=== PATIENT | female | born 1965 | race Caucasian/White ===

== ENCOUNTER 2016-03-03 08:53 | Emergency (ER) | payer OTHER ==
[2016-03-03] MEDS ORDERED: NORMAL SALINE 10 ML SYRINGE FLUSH IVP PRN (09:07)
[2016-03-03] MEDS ORDERED: Sodium Chloride 0.9% 1,000 ML PRIMARY IV ONE (09:07)
[2016-03-03] MEDS ORDERED: ASPIRIN 81 MG (BABY) CHEWABLE TABLET PO ONE (09:07)
[2016-03-03] MEDS ORDERED: IPRATROPIUM/ALBUTEROL SULFATE 3 ML NEB NEB ONE (09:09)
--- NOTE | 2016-03-03 09:12 | EKG ---
[address] [address] Measurements Intervals [place] Rate: 82 P: 70 MS: 127 QRS: -62 QRSD: 130 T: 78 QT: 418 QTc: 457 Interpretive Statements SINUS RHYTHM MARKED LEFT AXIS DEVIATION [QRS AXIS < -30] LEFT BUNDLE BRANCH BLOCK [120+ ms QRS DURATION, 80+ ms Q/S IN V1/V2, 85+ ms R IN I/aVL/V5/V6] INTERPRETATION BASED ON A DEFAULT AGE OF 40 YEARS Compared to ECG 10/29/2015 10:05:34 Left-axis deviation now present Left bundle-branch block now present T-wave abnormality no longer present In context of "chest pain" ACUTE MO must be considered Electronically Signed On 03-03-16 10:18:01 [facility] by Michael Duong MD [email or web address]
--- NOTE | 2016-03-03 09:30 | PDOC ---
General Adult HPI - General Chief Complaint: Chest Pain Stated Complaint: difficulty breathing Date Seen by Provider: 03/03/16 Time Seen by Provider: 09:00 Source: POSITIVE: Patient Exam Limitations: POSITIVE: No limitations Nurse's Notes Reviewed & Considered: Yes - History of Present Illness Initial Comment: The patient is a 50-year-old female who presents to the emergency department with increased shortness of breath and tightness across her chest. She reports that for the past 3 weeks or so she has had cough which is occasionally productive although usually dry. Over the past 24 hours she has had increased shortness of breath. She reports that she has been using her albuterol inhaler quite frequently. This morning when she woke up she stated that she could not catch her breath. She feels some tightness across her chest as well. She denies pain or swelling in her extremities or fever. She has had some subjective chills. She normally does not wear oxygen at home however does have an history of asthma and smokes approximately 1 pack of cigarettes per day. She reports that she does take Plavix at home which was started after she saw the dental surgery doctor 3 or 4 months ago. She does have a history of diabetes, hyperlipidemia as well as hypertension. Have you received a tetanus shot in the past 10 years?: No - Patient Home Medications Home Medications: Home Medications Metoclopramide HCl [Reglan] 1 tab PO BID PRN #60 tab 09/18/15 Blood Sugar Diagnostic [Onetouch Ultra Test Strips] 1 each IN BID #50 strip Blood-Glucose Meter [Onetouch Ultramini] 1 each MC BID #1 box 11/05/15 Albuterol Sulfate [Proair Hfa] 1 - 2 puff INH 6XD PRN #1 inhaler 02/12/16 Clopidogrel Bisulfate [Plavix] 1 tab PO DAILY #30 tab 02/12/16 Fluoxetine HCl 1 tab PO DAILY #30 tab 02/12/16 Metformin HCl 1 tab PO BID #60 tab 02/12/16 Simvastatin 1 tab PO DAILY #30 tab 02/12/16 Sitagliptin Phosphate [Januvia] 1 tab ORAL QD #30 tab 02/12/16 Gabapentin 2 tab PO BID #120 tab 02/19/16 Metoprolol Tartrate 1 tab PO DAILY tab 02/23/16 Omeprazole 1 cap PO DAILY #90 cap 02/23/16 Oxycodone HCl/Acetaminophen [Percocet 10-325 Mg Tablet] 1 tab-cap PO Q12H #60 tab-cap 02/23/16 Ranitidine HCl [Zantac 75] 75 mg PO DAILY tab 02/23/16 Ramipril [Altace] 2 tab-cap PO DAILY #60 cap 02/24/16 - Patient Allergies Allergies/Adverse Reactions: Allergies Allergy/AdvReac Type Severity Reaction Status Date / Time Sulfa (Sulfonamide Allergy Intermediate HIVES Verified 03/03/16 09:09 Antibiotics) sulfamethoxazole Allergy Intermediate HIVES Verified 03/03/16 09:09 [From Bactrim] trimethoprim [From Bactrim] Allergy Intermediate HIVES Verified 03/03/16 09:09 tramadol Allergy RASH Verified 03/03/16 09:09 quetiapine fumarate AdvReac Intermediate confusion Verified 03/03/16 09:09 [From Seroquel] Past Medical History - heen HEENT History: Denies History Additional HEENT History: MISSING TEETH Cardiovascular History: Hypertension, Hyperlipidemia Respiratory History: Asthma, COPD, Other (please comment) Additional Respiratory History: chronic tobacco abuse Gastrointestinal History: GERD, Other (please comment) Additional Gastrointestinal History: delayed gastric emptying Genitourinary History: Denies History Endocrine History: Type 2 Diabetes (oral) Musculoskeletal History: Arthritis, Fibromyalgia Prosthesis or Implant: No Neurological History: Migraines Blood Disorders: Denies History Psychiatric History: Depression, Anixety Disorders History of Sexually Transmitted Diseases: No Cancer History: Denies History History of MDRO: No History of Other Communicable Diseases: No Alcohol Use: Occasionally Substance Use Type: Marijuana Previous Surgical History: Yes Type / Date of Surgery: PARTIAL HYSTERECTOMY, c section, appy Anesthesia Reactions: No Malignant Hyperthermia: No Significant Family History: Asthma, Heart disease, COPD, Diabetes, Hypertension , Renal disease Past Medical History Reviewed: Reviewed - No Changes ROS - Limitations ROS Limitations: No Limitations Constitution: REPORTS: Chills. DENIES: Fever Cardiovascular: REPORTS: Chest Pain (She reports tightness across her chest which is worse with taking a deep inspiration this morning). DENIES: Heart Palpitations, Edema Respiratory: REPORTS: Cough Non Productive, Hurts To Breathe, Shortness Of Breath, Wheezing Neurological: REPORTS: Denies Neuro Symptoms Gastrointestinal: REPORTS: Denies GI Symptoms Musculoskeletal: REPORTS: Denies MS Symptoms Eyes: REPORTS: Denies Symptoms ENT: REPORTS: Congestion. DENIES: Sore Throat Skin: DENIES: Rash General Adult Exam - General Appearance General Appearance: POSITIVE: Alert, Cooperative, No Acute Distress - HEENT HEENT: POSITIVE: Head Inspection Nml, Eyes Inspection Nml, Ears Inspection Nml - Neck Neck: POSITIVE: Normal Inspection, Other (No JVD). NEGATIVE: Lymphadenopathy - Respiratory Respiratory: POSITIVE: No Respiratory Distress, Wheezes (She does have expiratory wheezes bilaterally), Other (She has diminished breath sounds bilaterally) - Cardiovascular Cardiovascular: POSITIVE: Regular Rate & Rhythm, No Murmur Peripheral Pulses: Dorsalis-pedis (R): 2+, Dorsalis-pedis (L): 2+ - Abdomen Abdomen: Soft: (All Quadrants), Denies Tenderness: (All Quadrants), No Distention: (All Quadrants) - Skin Skin: POSITIVE: Normal Color, No Rash - Extremities Extremity: Normal ROM: (All Extremities), Normal Inspection: (All Extremities) - Neurological / Psychological Neurological: POSITIVE: Other (No focal neurologic deficits) General Adult Progress - Results Reviewed by me Xrays/CTs/US Reviewed by me: Yes Discussed with Radiologist: Yes Radiology Findings: CT of the chest PE protocol reveals bilateral pleural effusions as well as pericardial effusion. She also has interstitial edema and some subcarinal lymphadenopathy. No evidence of PE per radiologist. Lab Results:: Laboratory Results 03/03/16 03/03/16 03/03/16 Range/Units 09:33 09:34 12:41 WBC 9.34 (4.8-10.8) 10^3/uL RBC 3.83 L (4.20-5.40) 10^6/uL Hgb 12.3 (12.0-16.0) g/dL Hct 37.6 (37.0-47.0) % MCV 98.2 (81-99) FL MCH 32.1 H (27-31) PG MCHC 32.7 L (33-37) g/dL RDW Std Deviation 50.7 H (39-50) fL RDW Coeff of Vaishali 14.5 (11.5-14.5) % Plt Count 263 (140-350) 10*3/uL MPV 9.0 (7.4-12.2) FL Immature Gran % (Auto) 0.2 (0-5) % Neut % (Auto) 69.6 (50-80) % Lymph % (Auto) 22.9 (10-50) % Edmonson % (Auto) 6.7 (5-15) % Eos % (Auto) 0.4 (0-8) % Baso % (Auto) 0.2 (0-1) % Immature Gran # (Auto) 0.02 10*3/UL Neut # (Auto) 6.49 10*3/UL Lymph # (Auto) 2.14 10*3/uL [place] # (Auto) 0.63 (0.3-0.8) 10*3/UL Eos # (Auto) 0.04 10*3/UL Baso # (Auto) 0.02 10*3/UL WBC Morphology Comment Normal morphology (NORM) Plt Morphology Comment Normal morphology (NORM) RBC Morph Comment Normal morphology (NORM) D-Dimer 1.01 H (0.00-0.59) mg/L VBG pH 7.52 H (7.32-7.42) VBG pCO2 33 L (45-55) mmHg VBG HCO3 27 H (22-26) mmol/L VBG Base Excess 4 H (-2-2) MMOL/L Sodium 137 (135-145) meq/L Potassium 4.4 (3.8-5.2) meq/L Chloride 105 (98-112) meq/L Carbon Dioxide 23 (23-33) meq/L Anion Gap 9 (5-20) BUN 13 (7-22) mg/dL Creatinine 0.7 (0.50-1.20) mg/dL Estimated GFR > 60 (>60 ml/min/1.73m(2)) BUN/Creatinine Ratio 18.57 (6-20) Glucose 118 H (78-110) mg/dL Calculated Osmolality 284.0 (267-292) mOsm/kg Lactic Acid 0.6 L (0.70-2.10) MMOL/L Calcium 8.9 (8.7-10.7) mg/dL Magnesium 1.7 (1.6-2.4) mg/dL Total Bilirubin 0.4 (0.3-1.2) mg/dL AST 28 (8-39) IU/L ALT 34 (9-52) IU/L Alkaline Phosphatase 85 (38-126) IU/L Troponin I < 0.012 < 0.012 (< 0.040) ng/mL C-Reactive Protein 1.5 H (0.0-0.9) mg/dL NT-Pro-B Natriuret Pep 7690 H (0-125) PG/ML Total Protein 6.1 (6.1-8.0) g/dL Albumin 3.2 L (3.5-4.8) g/dL Globulin 2.9 (2.50-4.10) g/dL Albumin/Globulin Ratio 1.10 L (1.3-2.0) mg/g EKG Interpretation:: POSITIVE: Normal Sinus Rhythm, Normal Rate, Other (She does have a left bundle branch block. When compared to EKG from October of this year this finding appears to be new.) - Patient's Progress MDM / ED Course: The patient was hypoxic with O2 sats in the upper 80s on room air on arrival. She has significant expiratory wheezing. She does have tightness across her chest however her presentation appears to be more respiratory rather than cardiac. She does however have a left bundle branch block which is new when compared to previous EKG. because of this finding I did contact Dr. Saab who is the dental surgery doctor in [place] who had taken care of her last October when she had undergone cardiac catheterization. He thought that she had had this left bundle branch block intermittently when she was hospitalized there in [place] and did not think that this was a new finding. He recommended checking troponins and if elevated contact him. He stated that she does have a 90% stenosis of a small diagonal branch which is not amendable to intervention and she has recommended medical management for that. He states that her LAD was open at the time of her catheterization in October. She was given aspirin per chest pain protocol as well as DuoNeb. Blood cultures, lactate and venous blood gas were obtained with initial IV start. She was placed on oxygen per nasal cannula which brought her O2 sats up into the mid-90s. She was given sublingual nitroglycerin which did not help with her chest pain at all and actually she stated she thought it made it worse. She subsequently received morphine 4 mg and Zofran 4 mg IV for pain. She was also given Solu-Medrol 125 mg IV for presumed COPD exacerbation. This brought her pain level down to about a 6 out of 10 however she was still having significant chest pain. Her d- dimer was elevated and her initial troponin was normal. The remainder of her blood work was essentially unremarkable. She underwent CT for PE protocol which was negative for PE. She did however have bilateral pleural effusions and pericardial effusion as well as some interstitial edema of questionable etiology per radiologist. She had also some subcarinal lymphadenopathy. She was having continued pain and received a dose of fentanyl for pain. This resulted in further improvement in pain down to a 4 out of 10. In addition a repeat troponin was ordered as well as a BNP. Her repeat troponin remains normal, her BNP however is markedly elevated at 7600. The patient is discussed with Dr. Fernandez. Given her CT findings and elevated BNP he had recommended that I discussed the patient with Dr. Saab regarding further recommendation. He recommended that the patient should be transferred back to [place] for further cardiac evaluation. In addition the patient will be started on heparin per cardiac protocol. These findings and recommendations were discussed with the patient and she is in agreement with that plan. Arrangements are being made to transfer the patient to [facility]. - Consult Counseled: POSITIVE: Patient, RE: Lab Results, RE: Radiology Results, RE: DX, RE : Need for F/U Patient Care Time - Estimated PCT Patient Care Time (In Minutes): 70 Vital Signs - Recent Vital Signs Vital Signs: Vital Signs (Last 8 hours) Temp Pulse Pulse Resp BP Pulse Ox 03/03/16 08:59 82 03/03/16 08:53 96.4 F L 84 21 180/122 91 - VS Reviewed Vital Signs Reviewed: Yes Discharge Clinical Impression: Chest pain, Congestive heart failure, Pericardial effusion, Pleural effusion, Hypoxemia Discharge Disposition: Transferred to Tertiary Care Facility Condition: Fair Date Decision to Transfer to Another Facility: 03/03/16 Time Decision to Transfer to Another Facility: 13:30
[2016-03-03 09:38] LABS: BASOPHILS # (AUTO) 0.02 10*3/UL; BASOPHILS % (AUTO) 0.2 % (0-1); EOSINOPHILS % (AUTO) 0.4 % (0-8); HEMATOCRIT 37.6 % (37.0-47.0); HEMOGLOBIN 12.3 g/dL (12.0-16.0); IMM GRAN % (AUTO) 0.2 % (0-5); IMM GRAN# (AUTO) 0.02 10*3/UL; LYMPHOCYTES # (AUTO) 2.14 10*3/uL; LYMPHOCYTES % (AUTO) 22.9 % (10-50); MEAN CORPUSCULAR HEMOGLOBIN 32.1 PG (27-31); MEAN CORPUSCULAR HGB CONC 32.7 g/dL (33-37); MONOCYTES # (AUTO) 0.63 10*3/UL (0.3-0.8); MONOCYTES % (AUTO) 6.7 % (5-15); NEUTROPHILS # (AUTO) 6.49 10*3/UL; NEUTROPHILS % (AUTO) 69.6 % (50-80); RDW COEFFICIENT OF VARIATION 14.5 % (11.5-14.5); RED BLOOD COUNT 3.83 10^6/uL (4.20-5.40); WHITE BLOOD COUNT 9.34 10^3/uL (4.8-10.8)
[2016-03-03 09:39] LABS: PLATELET MORPHOLOGY COMMENT NORMAL MORPHOLOGY (NORM)
[2016-03-03 10:00] LABS: ASPARTATE AMINO TRANSFERASE 28 IU/L (8-39); BILIRUBIN,TOTAL 0.4 mg/dL (0.3-1.2); BLOOD UREA NITROGEN 13 mg/dL (7-22); BUN/CREATININE RATIO 18.57 (6-20); C-REACTIVE PROTEIN 1.5 mg/dL (0.0-0.9); CALCIUM 8.9 mg/dL (8.7-10.7); CHLORIDE 105 meq/L (98-112); CREATININE 0.7 mg/dL (0.50-1.20); EST GLOMERULAR FILTRATION > 60 (>60 ml/min/1.73m(2)); GLUCOSE 118 mg/dL (78-110); LACTATE 0.6 MMOL/L (0.70-2.10); MAGNESIUM 1.7 mg/dL (1.6-2.4); POTASSIUM 4.4 meq/L (3.8-5.2); SODIUM 137 meq/L (135-145); TOTAL PROTEIN 6.1 g/dL (6.1-8.0)
[2016-03-03] MEDS: NITROGLYCERIN 0.4 MG SL TAB (BOTTLE OF 3) SL ONE ×2 (10:00→10:08)
[2016-03-03] MEDS ORDERED: MORPHINE SULFATE 4 MG/1 ML IVP ONE (10:20)
[2016-03-03] MEDS ORDERED: methylPREDNISolone 125 MG/2 ML VIAL IVP ONE (10:20)
[2016-03-03] MEDS ORDERED: ONDANSETRON 4 MG/2 ML VIAL IVP ONE (10:21)
[2016-03-03] MEDS ORDERED: fentaNYL Inj 100 MCG/2 ML VIAL IVP ONE (12:38)
[2016-03-03] MEDS ORDERED: FUROSEMIDE 10 MG/1 ML - 2 ML VIAL IVP ONE (13:29)
[2016-03-03] MEDS ORDERED: HEPARIN 5000 UNIT/1 ML IV ONE (13:37)
--- NOTE | 2016-03-03 13:41 | DI ---
CT ANGIOGRAM OF THE CHEST, 03/03/2016 11:17 AM : Clinical History: Chest pain. Cough. Elevated D-dimer test. Previous Exam: None at this facility. Scans are performed from the base of the neck to the lower lung bases following IV administration of 70 mL of Isovue 300. Proprietary automated bolus tracking software was not used to verify the timing of the injection. The base of the neck and thoracic inlet are normal. There is no axillary, supraclavicular, or hilar a denopathy, but there may be subcarinal adenopathy. There is a moderate pericardial effusion but the h eart is otherwise normal. The pulmonary arteries are normal. There is no pulmonary arterial hypertens ion. There is no evidence of pulmonary embolism or pulmonary infarction. There is no acute infiltrate but there are bilateral small pleural effusions, slightly larger on the right side than the left. In addition extensive Jace A lines and a moderate amount of Jace B lines are present. Review of the chest x-ray from 10/29/2015 and the exam performed today showed that these interstitial markings have developed since October of 2015. The development of pleural effusions and pericardial effusion as well as interstitial changes can be seen with collagen vascular diseases. Both adrenal glands and the spleen as well as the visualized portions of the liver and pancreas are normal. READIN. Normal CTA of the chest. There are no pulmonary emboli or pulmonary infarcts. 2. Small bilateral pleural effusions, slightly larger on the right side than the left. The patient h as developed interstitial markings involving Jace A and Jace B lines since the chest x-ray from . The interstitial changes can be secondary to fibrosis or fluid in the lymphatic channels an d less likely lymphangitic spread of tumor. 3. Moderate pericardial effusion. 4. Subcarinal adenopathy.
--- NOTE | 2016-03-03 13:49 | DI ---
AP CHEST X-RAY, 03/03/2016 10:58 AM : Clinical History: Chest pain. Cough. Previous Exam: 10/29/2015. There is no acute soft tissue or bony abnormality. Heart size is normal. There is no acute infiltrate or effusion. Since the previous exam, the patient has developed extensive Jace A lines bilaterally . These markings can be secondary to fluid in the lymphatic channels such as seen with CHF, fibrosis of the interstitial planes, or lymphangitic spread associated with tumors. Mediastinal structures are normal. There are no pulmonary nodules. Readin. There is no acute infiltrate or effusion. 2. Interval development of extensive interstitial disease involving Jace A and Jace B lines. Dif ferential as listed above.
[2016-03-03 14:26] VITALS: RESP 16; TEMP 97.6
== END 2016-03-03 14:00 | disposition short-term general hospital (02) ==
LOC: ER 08:53
DX: I50.9 Heart failure, unspecified (principal); I31.3 Pericardial effusion (noninflammatory); J90 Pleural effusion, not elsewhere classified; R09.02 Hypoxemia; R07.89 Other chest pain; R06.2 Wheezing
CPT/HCPCS: 36415 ×2; 71010; 71275; 80053; 82803; 83605; 83735; 83880; 84484; 85025; 85379; 86140; 93005; 93010; 94640; 96374; 96375; 99284 ×2; J2930; J3010; J7620; 87040; J1644; J2270; J2405; J7030

== ENCOUNTER → 2016-03-30 | Outpatient (CLI) | payer OTHER ==
[2016-03-30 09:24] LABS: LDL CHOLESTEROL,CALCULATED 77.4 mg/dL
== END ==
LOC: LAB 08:38
PROVIDERS: ATTEND Internal Medicine
DX: E11.9 Type 2 diabetes mellitus without complications (principal); I50.23 Acute on chronic systolic (congestive) heart failure; I10 Essential (primary) hypertension; E78.00 Pure hypercholesterolemia, unspecified; K21.9 Gastro-esophageal reflux disease without esophagitis; F17.210 Nicotine dependence, cigarettes, uncomplicated
CPT/HCPCS: 36415; 80061; 83880; 84443

== ENCOUNTER → 2016-04-21 | Outpatient (CLI) | payer OTHER ==
[2016-04-21 10:28] LABS: BILIRUBIN,URINE NEGATIVE (NEG); CLARITY,URINE CLEAR (CLEAR); GLUCOSE, URINE (UA) NEGATIVE (NEG); LEUKOCYTE ESTERASE ,URINE NEGATIVE (NEG); NITRATE,URINE NEGATIVE (NEG); OCCULT BLOOD,URINE SMALL (NEG); PH,URINE 5.5 (5.0-8.5); PROTEIN,URINE NEGATIVE (NEG); UROBILINOGEN,URINE 0.2 mg/dL (0.2)
[2016-04-21 10:33] LABS: URINE SAMPLE TYPE VOIDED SPECIMEN
[2016-04-21 10:36] LABS: CREATININE, URINE 94.9 MG/DL (15-500)
[2016-04-21 10:43] LABS: RBC,URINE 0 /hpf; SQUAMOUS EPITHELIAL CELL,UR FEW; WBC,URINE 0-1
[2016-04-21 10:44] LABS: METHAMPHETAMINES SCREEN,URINE NEGATIVE (NEG); URINE SAMPLE TYPE VOIDED SPECIMEN; URINE SPECIFIC GRAVITY - MAN 1.015
[2016-04-21 10:45] LABS: CANNABINOID SCREEN,URINE POSITIVE (NEG); COCAINE SCREEN NEGATIVE (NEG)
== END ==
LOC: LAB 09:32
PROVIDERS: ATTEND Internal Medicine
DX: E11.9 Type 2 diabetes mellitus without complications (principal); Z76.89 Persons encountering health services in other specified circumstances; F17.210 Nicotine dependence, cigarettes, uncomplicated
CPT/HCPCS: 80305; 81001; 82043; 82542

== ENCOUNTER → 2016-09-24 | Outpatient (CLI) | payer OTHER | LOC: LAB 12:46 | PROVIDERS: ATTEND Physician Assistant Medical | DX: N30.01 Acute cystitis with hematuria (principal) | CPT/HCPCS: 87088 ==

== ENCOUNTER → 2016-09-25 | Outpatient (CLI) | payer OTHER ==
[2016-09-25 08:56] LABS: BASOPHILS # (AUTO) 0.04 10*3/UL; BASOPHILS % (AUTO) 0.5 % (0-1); EOSINOPHILS % (AUTO) 1.3 % (0-8); HEMATOCRIT 38.8 % (37.0-47.0); HEMOGLOBIN 13.4 g/dL (12.0-16.0); MEAN CORPUSCULAR HEMOGLOBIN 33.3 PG (27-31); MEAN CORPUSCULAR HGB CONC 34.5 g/dL (33-37); MEAN CORPUSCULAR VOLUME 96.3 FL (81-99); MEAN PLATELET VOLUME 8.5 FL (7.4-12.2); MONOCYTES # (AUTO) 0.45 10*3/UL (0.3-0.8); NEUTROPHILS # (AUTO) 4.73 10*3/UL; NEUTROPHILS % (AUTO) 63.7 % (50-80); RED BLOOD COUNT 4.03 10^6/uL (4.20-5.40)
[2016-09-25 08:57] LABS: PLATELET MORPHOLOGY COMMENT NORMAL MORPHOLOGY (NORM); RBC MORPHOLOGY COMMENT NORMAL MORPHOLOGY (NORM); WBC MORPHOLOGY COMMENT NORMAL MORPHOLOGY (NORM)
[2016-09-25 09:08] LABS: BLOOD UREA NITROGEN 12 mg/dL (7-22); CALCIUM 8.7 mg/dL (8.7-10.7); EST GLOMERULAR FILTRATION > 60 (>60 ml/min/1.73m(2)); SERUM ALBUMIN 3.5 g/dL (3.5-4.8)
[2016-09-25 09:09] LABS: HEMOGLOBIN A1C 6.39 % (4.2-6.0)
[2016-09-28 12:55] LABS: HEP B CORE IGM ANTIBODY Negative (Negative); HEPATITIS A IGM Negative (Negative); HEPATITIS B SURFACE AG Negative (Negative)
== END ==
LOC: LAB 08:38
PROVIDERS: ATTEND Physician Assistant Medical
DX: E11.9 Type 2 diabetes mellitus without complications (principal); R14.0 Abdominal distension (gaseous); R10.84 Generalized abdominal pain; I10 Essential (primary) hypertension; R79.89 Other specified abnormal findings of blood chemistry; Z72.0 Tobacco use
CPT/HCPCS: 36415; 80053; 83036; 83880; 85025; 86705; 86709; 86803; 87340

== ENCOUNTER → 2016-09-28 | Outpatient (CLI) | payer OTHER ==
[2016-09-28 11:28] LABS: BASOPHILS # (AUTO) 0.06 10*3/UL; BASOPHILS % (AUTO) 0.8 % (0-1); EOSINOPHILS # (AUTO) 0.07 10*3/UL; EOSINOPHILS % (AUTO) 0.9 % (0-8); HEMATOCRIT 40.1 % (37.0-47.0); HEMOGLOBIN 13.8 g/dL (12.0-16.0); LYMPHOCYTES # (AUTO) 2.12 10*3/uL; MEAN CORPUSCULAR HEMOGLOBIN 33.3 PG (27-31); MEAN CORPUSCULAR HGB CONC 34.4 g/dL (33-37); MEAN CORPUSCULAR VOLUME 96.9 FL (81-99); MEAN PLATELET VOLUME 8.9 FL (7.4-12.2); MONOCYTES # (AUTO) 0.51 10*3/UL (0.3-0.8); MONOCYTES % (AUTO) 6.9 % (5-15); NEUTROPHILS # (AUTO) 4.65 10*3/UL; NEUTROPHILS % (AUTO) 62.5 % (50-80); RED BLOOD COUNT 4.14 10^6/uL (4.20-5.40)
[2016-09-28 11:37] LABS: BILIRUBIN,URINE NEGATIVE (NEG); CLARITY,URINE CLEAR (CLEAR); COLOR,URINE YELLOW; GLUCOSE, URINE (UA) NEGATIVE (NEG); NITRATE,URINE NEGATIVE (NEG); PH,URINE 5.5 (5.0-8.5); PROTEIN,URINE TRACE mg/dl (NEG); UROBILINOGEN,URINE 0.2 mg/dL (0.2)
[2016-09-28 11:45] LABS: BLOOD UREA NITROGEN 15 mg/dL (7-22); BUN/CREATININE RATIO 21.42 (6-20); CALCIUM 9.3 mg/dL (8.7-10.7); EST GLOMERULAR FILTRATION > 60 (>60 ml/min/1.73m(2)); PLATELET MORPHOLOGY COMMENT NORMAL MORPHOLOGY (NORM); RBC MORPHOLOGY COMMENT NORMAL MORPHOLOGY (NORM); SERUM ALBUMIN 3.8 g/dL (3.5-4.8); WBC MORPHOLOGY COMMENT NORMAL MORPHOLOGY (NORM)
[2016-09-28 11:46] LABS: OCCULT BLOOD,URINE TRACE (NEG)
[2016-09-28 11:55] LABS: BACTERIA,URINE FEW; SQUAMOUS EPITHELIAL CELL,UR MODERATE
[2016-09-28 14:35] LABS: URINE SAMPLE TYPE VOIDED SPECIMEN
--- NOTE | 2016-09-28 16:06 | DI ---
History: Syncope Comparison: October 29, 2015 Findings: Heart size normal Pulmonary vasculature normal Lungs clear. No pleural effusion No gross osseous abnormalities Impression Normal two-view study of the chest
== END ==
LOC: MOB LAB 10:03
PROVIDERS: ATTEND Internal Medicine
DX: R55 Syncope and collapse (principal); E11.9 Type 2 diabetes mellitus without complications; K52.9 Noninfective gastroenteritis and colitis, unspecified; R30.0 Dysuria; R79.9 Abnormal finding of blood chemistry, unspecified; F17.209 Nicotine dependence, unspecified, with unspecified nicotine-induced disorders
CPT/HCPCS: 36415; 71020; 80053; 81001; 83880; 84443; 85025

== ENCOUNTER 2017-02-20 09:25 | Observation (INO) ==
[2017-02-20] MEDS ORDERED: HYDROmorphone 2 MG/1 ML IVP ONE ×2 (09:50→11:05)
[2017-02-20] MEDS ORDERED: Lactated Ringers 1,000 ML PRIMARY IV ONE (09:50)
[2017-02-20] MEDS ORDERED: NORMAL SALINE 10 ML SYRINGE FLUSH IVP PRN ×2 (10:02→12:07)
--- NOTE | 2017-02-20 11:14 | DI ---
History: Physician Notes: Tech Comments: Exam: CT L SPINE Without Contrast Comparison: MRI 12/22/2011 FINDINGS: A posterior disc osteophyte complex is present at T11-T12 with mild appearing left paracentral and left foraminal narrowing. Posterior disc osteophyte complex at T12-L1 without significant appearing central or foraminal stenosis. L1-L5 appear within limits. L5-S1 broad-based disc bulge with mild central canal narrowing without CT evidence of significant foraminal stenosis. No fracture or malalignment. Small bilateral right and left adrenal nodule appear lipid rich. No renal stones or hydronephrosis. Bilateral symmetric perinephric stranding, edema is nonspecific. IMPRESSION: A posterior disc osteophyte complex is present at T11-T12 with mild appearing left paracentral and left foraminal narrowing. Posterior disc osteophyte complex at T12-L1 without significant appearing central or foraminal stenosis. L1-L5 appear within limits. L5-S1 broad-based disc bulge with mild central canal narrowing without CT evidence of significant foraminal stenosis. No fracture or malalignment.
[2017-02-20] MEDS ORDERED: Metoclopramide Tab 10 MG TAB PO PRN (12:07)
[2017-02-20] MEDS ORDERED: ONDANSETRON 4 MG/2 ML VIAL IVP PRN (12:07)
[2017-02-20] MEDS ORDERED: LIDOCAINE W/ SODIUM BICARB 0.5 ML SYR SUBD PRN (12:07)
[2017-02-20] MEDS ORDERED: ACETAMINOPHEN 325 MG TABLET PO PRN (12:07)
[2017-02-20] MEDS ORDERED: CALCIUM CARBONATE 500 MG (TUMS) CHEWABLE TABLET PO PRN (12:07)
[2017-02-20] MEDS ORDERED: DOCUSATE 100 MG CAPSULE PO PRN (12:07)
[2017-02-20] MEDS ORDERED: ALBUTEROL SULFATE 8.5 GM HFA INHALER INH PRN (12:07)
[2017-02-20] MEDS ORDERED: PNEUMOCOCCAL 23 VACCINE 25 MCG/0.5 ML VIAL IM ONE (13:35)
[2017-02-20] MEDS ORDERED: Influenza 17-18 Vaccine (6mo+) Quad 60mcg/0.5ml PF IM ONE (13:35)
[2017-02-20] MEDS ORDERED: NICOTINE 21 MG /DAY PATCH TRANSDERM ONE (14:08)
[2017-02-20] MEDS ORDERED: Insulin Sliding Scale Protocol SUBCUT PRN (14:10)
[2017-02-20] MEDS ORDERED: Glucagon Inj Vial 1 MG/ML VIAL IM PRN (14:10)
[2017-02-20] MEDS ORDERED: DEXTROSE 50%-WATER SYRINGE 50 ML SYRINGE IVP PRN (14:10)
[2017-02-20] MEDS ORDERED: DEXTROSE 31 GM GEL PO PRN (14:10)
[2017-02-20] MEDS ORDERED: METHYLPREDNISOLONE 4 MG TAB DOSE PACK(DAY 1 0700) PO ONE (15:00)
[2017-02-20] MEDS ORDERED: METHYLPREDNISOLONE 4 MG TAB DOSE PACK(DAY 1-4 1230) PO SCH (15:00)
[2017-02-20] MEDS: CYCLOBENZAPRINE 10 MG TABLET PO PRN (15:02)
[2017-02-20] MEDS: KETOROLAC 15 MG/1 ML VIAL IVP PRN (15:02)
--- NOTE | 2017-02-20 15:21 | PDOC ---
HPI - History of Present Illness Date of Service: 02/20/17 Time of Service: 13:00 Chief Complaint: back and leg pain History of Present Illness: This is a 51 YO female with DMII, CAD, and other medical issues who presents to the ER this morning with complaints of back pain with radiation down the left leg. Present for two weeks. The patient states it hurts most with twisting motions. She states she cannot recall any injury or motion that caused the pain. She also tells me she has back arthritis, but her back normally does not cause pain. The patient stated she tried tylenol without help. A CT scan in the ER shows a bulging disk at L5-S1 and she has an examination consistent with a radiculopathy at that level. Pain medications in the ER helped the back pain improve significantly according to the patient. Past Medical History Medical History: 1. Diabetes type II, complicated by neuropathy and gastropathy. 2. Diabetic neuropathy. 3. Hypertension. 4. Bipolar disorder. 5. Depression. 6. tobacco abuse. 7. GERD, with history of esophageal stricture. 8. IBS. 10. Diabetic gastropathy. 11. Obstructive sleep apnea she's not on CPAP Surgical History: 1. Hysterectomy with left oophorectomy. 2. Appendectomy Pertinent Family History: Father from [place] at age 64. significant for CAD Past Social History: smokes cigarettes. The patient denies alcohol. . She did not admit to me but did admit to the RN that she smokes marijuana daily. Tobacco Use: Current Every Day Smoker In the Past 12 Months, Have Used or Abuse Any of the Following Substance: Marijuana Alcohol Use: None Medication / Allergies Home Medications: Home Medications Medication Instructions Recorded Confirmed Type Blood-Glucose Meter [Onetouch 1 ea MC BID #1 box 11/05/15 02/20/17 Rx Ultramini] Metformin HCl 1 tab-cap PO BID #180 tab-cap 05/12/16 02/20/17 Rx Albuterol Sulfate [Proair Hfa] 1 - 2 puff INH 6XD PRN #1 inhaler 07/09/16 History Blood Sugar Diagnostic [Onetouch 1 ea IN BID #50 strip 07/09/16 02/20/17 Rx Ultra Test Strips] clopidogrel 75 mg tablet 75 mg PO DAILY #30 tab 02/02/17 02/20/17 Rx gabapentin 600 mg tablet 1,200 mg PO BID #120 tab 02/02/17 02/20/17 Rx metoprolol tartrate 25 mg tablet 25 mg PO DAILY #30 tab 02/02/17 02/20/17 Rx omeprazole 40 mg capsule,delayed 40 mg PO DAILY #90 cap 02/02/17 02/20/17 Rx release ramipril 10 mg capsule 20 mg PO DAILY #60 cap 02/02/17 02/20/17 Rx simvastatin 40 mg tablet 40 mg PO DAILY #30 tab-cap 02/02/17 02/20/17 Rx sitagliptin 100 mg tablet 100 mg PO QD #30 tab-cap 02/02/17 02/20/17 Rx metoclopramide 10 mg tablet 10 mg PO TID PRN #270 tab 02/10/17 02/20/17 Rx fluoxetine 60 mg tablet 60 mg PO DAILY #90 tab 02/15/17 02/20/17 Rx Allergies/Adverse Reactions: Allergies 3 Allergy/AdvReac Type Severity Reaction Status Date / Time quetiapine fumarate Allergy Intermediate confusion Verified 02/20/17 09:39 [From Seroquel] Sulfa (Sulfonamide Allergy Intermediate HIVES Verified 02/20/17 09:39 Antibiotics) sulfamethoxazole Allergy Intermediate HIVES Verified 02/20/17 09:39 [From Bactrim] trimethoprim [From Bactrim] Allergy Intermediate HIVES Verified 02/20/17 09:39 tramadol Allergy RASH Verified 02/20/17 09:39 Review of Systems - Review of Systems All Systems: Reviewed & No Additional Complaints Except as Stated (I did a 12 point review of systems and it was negative except as per HPI and that noted below.) - Respiratory Respiratory: REPORTS: Cough (daily) - Cardiovascular Cardiovascular: REPORTS: Other (sometimes feels like her heart beats fast.) - Gastrointestinal Gastrointestinal / Abdominal: REPORTS: Nausea, Vomiting, Diarrhea, Other (has known DM gastroparesis, vomits every morning.) - Genitourinary Genitourinary: REPORTS: Negative System Review - Musculoskeletal Musculoskeletal: REPORTS: Back Pain - Hematlogic / Lymphatic Hematologic / Lymphatic: REPORTS: Easy Bleeding/Bruising (on plavix) - Neurological Neurologic: REPORTS: Negative System Review - Psychiatric Psychiatric: REPORTS: Negative System Review Exam - Vitals Vital Signs: Vital Signs Temperature 97.2 F Temperature Source Temporal Artery Scan Pulse Rate [Pulse Oximeter] 66 Respiratory Rate 12 Blood Pressure [Left Arm] 130/92 Pulse Ox 94 Oxygen Delivery Method Room Air Height 5 ft 2 in Weight 164 lb 6.4 oz laying in position on left side, noted Dr. Blancas at bedside. - General General Appearance: No Acute Distress, Cooperative - Head Head Exam: Normal Inspection, Normocephalic, Atraumatic - Eye Eye Exam: POSITIVE: No Scleral Icterus - Neck Neck Exam: Normal Inspection, No Tenderness, No Lymphadenopathy, No Thyromegaly - Respiratory Respiratory Exam: POSITIVE: Breathing Non Labored, Normal to Percussion and Palpation, Coarse Breath Sounds - Cardiovascular Cardiovascular Exam: POSITIVE: RRR, No Murmur, No Clicks, No Gallops, No Rubs, No JVD - GI/Abdominal GI/Abdominal Exam: POSITIVE: Normal Bowel Sounds, Non Tender, Non Distended, Soft - Rectal Rectal Exam: POSITIVE: Deferred - External Exam: POSITIVE: Deferred Exam: POSITIVE: Deferred - Extremities Extremities Exam: POSITIVE: No Clubbing Present, No Edema Present, No Cyanosis Present - Back Back Exam: POSITIVE: No CVA Tenderness - Neurological Neurological Exam: POSITIVE: Alert, Oriented x 3, No Facial Droop, Speech Intact / Clear, Moves All Extremities Equally Additional Neurological Exam Details: brisk patellar reflex, delayed achilles reflex on left side. - Psychiatric Psychiatric Exam: POSITIVE: Normal Affect, Normal Mood - Central Line Examination Central Line Present on Admission: No Results - Imaging Status: Report Reviewed by Me (L5-S1 disk bulge.) Assessment and Plan - Patient Problems (1) Sciatica Current Visit: Yes Status: Acute Code(s): M54.30 - Sciatica, unspecified side Qualifiers: Laterality: left Qualified Code(s): M54.32 - Sciatica, left side (2) DMII (diabetes mellitus, type 2) Current Visit: Yes Status: Acute Code(s): E11.9 - Type 2 diabetes mellitus without complications Qualifiers: Diabetes mellitus complication status: with neurologic complications Diabetes mellitus complication detail: with autonomic neuropathy Diabetes mellitus usp insulin use: without ferry terminal agent use Qualified Code(s): E11.43 - Type 2 diabetes mellitus with diabetic autonomic (poly)neuropathy (3) Tobacco abuse Current Visit: Yes Status: Acute Code(s): Z72.0 - Tobacco use (4) Marijuana abuse Current Visit: Yes Status: Acute Code(s): F12.10 - Cannabis abuse, uncomplicated (5) Hypertension Current Visit: Yes Status: Chronic Code(s): I10 - Essential (primary) hypertension Qualifiers: Hypertension type: essential hypertension Qualified Code(s): I10 - Essential (primary) hypertension (6) Cyclic vomiting syndrome Current Visit: Yes Status: Acute Code(s): G43.A0 - Cyclical vomiting, not intractable Qualifiers: Vomiting Intractability: intractable Nausea presence: with nausea Qualified Code(s): G43.A1 - Cyclical vomiting, intractable - Assessment / Plan Additional Assessment/Plan Details: admit for observation medrol dose opal, NSAID, muscle relaxants, PO pain medications PT and OT MRI back tomorrow NOT A SURGICAL CANDIDATE YET--ON PLAVIX, NEEDS TO BE CLEARED BY CARDIOLOGY, also , needs DMII to be tuned up and needs to stop smoking stop marijuana--causing the vomiting with gastroparesis NO IV NARCOTICS check labs to make sure no signs of infection
[2017-02-20 15:50] LABS: BASOPHILS # (AUTO) 0.02 10*3/UL; BASOPHILS % (AUTO) 0.2 % (0-1); EOSINOPHILS # (AUTO) 0.08 10*3/UL; Hematocrit [HCT] 36.8 % (37.0-47.0); Hemoglobin [HGB] 12.2 g/dL (12.0-16.0); LYMPHOCYTES # (AUTO) 2.78 10*3/uL; MEAN CORPUSCULAR HEMOGLOBIN 33.8 PG (27-31); MEAN CORPUSCULAR HGB CONC 33.2 g/dL (33-37); MEAN CORPUSCULAR VOLUME 101.9 FL (81-99); MEAN PLATELET VOLUME 8.9 FL (7.4-12.2); MONOCYTES # (AUTO) 0.66 10*3/UL (0.3-0.8); MONOCYTES % (AUTO) 8.2 % (5-15); NEUTROPHILS # (AUTO) 4.53 10*3/UL; PLATELET MORPHOLOGY COMMENT NORMAL MORPHOLOGY (NORM); RBC MORPHOLOGY COMMENT NORMAL MORPHOLOGY (NORM); RED BLOOD COUNT 3.61 10^6/uL (4.20-5.40); WBC MORPHOLOGY COMMENT NORMAL MORPHOLOGY (NORM)
[2017-02-20 16:00] LABS: BLOOD UREA NITROGEN 13 mg/dL (7-22); BUN/CREATININE RATIO 16.25 (6-20); SERUM ALBUMIN 3.4 g/dL (3.5-4.8)
[2017-02-20] MEDS: Insulin Lispro Flexpen 300 UNIT/3 ML INSULN.PEN SUBCUT SCH ×2 (16:35→21:09)
[2017-02-20 16:44] LABS: Erythrocyte Sediment Rate 2 MM/HR (0-20)
[2017-02-20] MEDS: HYDROcodone-APAP 5 MG -325 MG TABLET PO PRN ×2 (17:10→21:08)
[2017-02-20] MEDS ORDERED: METHYLPREDNISOLONE 4 MG TAB DOSE PACK(DAY 1-3 1730) PO SCH (17:30)
[2017-02-20 19:55] VITALS: TEMP 97.8
[2017-02-20] MEDS ORDERED: METHYLPREDNISOLONE 4 MG TAB DOSE PACK(DAY 1-2 2100) PO SCH (21:00)
[2017-02-20] MEDS: GABAPENTIN 400 MG CAPSULE PO SCH (21:08)
--- NOTE | 2017-02-20 23:37 | PDOC ---
Back Pain / Injury HPI - General Chief Complaint: Neck / Back Complaint Stated Complaint: back pain radiating down left leg Date Seen by Provider: 02/20/17 Time Seen by Provider: 09:30 Source: Patient Exam Limitations: POSITIVE: No limitations Nurse's Notes Reviewed & Considered: Yes - History of Present Illness Initial Comments: The patient is a [age]-year-old female. Patient states that for the past 2 weeks she has had pain in the left lower back with radiation down her left leg into all of her left toes. She states her pain became worse last night and now has a great deal of difficulty bearing weight. She states she does have an approximately 15 year history of chronic back pain. No history of recent back or other trauma. She states her left leg feels "weak". Patient has a history of diabetes mellitus, hypertension and depression. She states that she for the last one or 2 days she's had a "cold" and a cough and she states that coughing exacerbates her back pain and produces left radiculopathy. A she is brought to the emergency room by her . Body Location Affected: REPORTS: Lower Extremity (L), Back Timing: REPORTS: Abrupt (Patient states her pain became abruptly worse last night with radiculopathy, left leg.), Getting Worse Duration: >24 hours (2 week history of back pain which became abruptly worse last night.) Severity: Severe Quality: REPORTS: "Pain" Context: REPORTS: Coughing (Worsened with cough) Location at Time of Onset: REPORTS: Home Modifying Factors: improves with: Coughing, Movement, Walking Associated Symptoms: REPORTS: Back pain Similar Symptoms Previously: Yes (history of chronic low back pain, but without radiculopathy) Recent Care Received: REPORTS: Denies Any Prior Injuries Related to Current Complaint?: No - Patient Home Medications Home Medications: Home Medications Blood-Glucose Meter [Onetouch Ultramini] 1 ea MC BID #1 box 11/05/15 Metformin HCl 1 tab-cap PO BID #180 tab-cap 05/12/16 Albuterol Sulfate [Proair Hfa] 1 - 2 puff INH 6XD PRN #1 inhaler 07/09/16 Blood Sugar Diagnostic [Onetouch Ultra Test Strips] 1 ea IN BID #50 strip clopidogrel 75 mg tablet 75 mg PO DAILY #30 tab 02/02/17 gabapentin 600 mg tablet 1,200 mg PO BID #120 tab 02/02/17 metoprolol tartrate 25 mg tablet 25 mg PO DAILY #30 tab 02/02/17 omeprazole 40 mg capsule,delayed release 40 mg PO DAILY #90 cap 02/02/17 ramipril 10 mg capsule 20 mg PO DAILY #60 cap 02/02/17 simvastatin 40 mg tablet 40 mg PO DAILY #30 tab-cap 02/02/17 sitagliptin 100 mg tablet 100 mg PO QD #30 tab-cap 02/02/17 metoclopramide 10 mg tablet 10 mg PO TID PRN #270 tab 02/10/17 fluoxetine 60 mg tablet 60 mg PO DAILY #90 tab 02/15/17 - Patient Allergies Allergies/Adverse Reactions: Allergies 3 Allergy/AdvReac Type Severity Reaction Status Date / Time quetiapine fumarate Allergy Intermediate confusion Verified 02/20/17 09:39 [From Seroquel] Sulfa (Sulfonamide Allergy Intermediate HIVES Verified 02/20/17 09:39 Antibiotics) sulfamethoxazole Allergy Intermediate HIVES Verified 02/20/17 09:39 [From Bactrim] trimethoprim [From Bactrim] Allergy Intermediate HIVES Verified 02/20/17 09:39 tramadol Allergy RASH Verified 02/20/17 09:39 Past Medical History - heen HEENT History: Other (please comment) Additional HEENT History: MISSING TEETH Cardiovascular History: Hypertension, Hyperlipidemia Respiratory History: Asthma Additional Respiratory History: chronic tobacco abuse Gastrointestinal History: GERD, Other (please comment) Additional Gastrointestinal History: delayed gastric emptying Genitourinary History: Denies History Endocrine History: Type 2 Diabetes (oral) Musculoskeletal History: Arthritis, Fibromyalgia, Back Pain Prosthesis or Implant: No Neurological History: Migraines Blood Disorders: Denies History Psychiatric History: Depression, Anxiety Disorders History of Sexually Transmitted Diseases: No Cancer History: Denies History In Past Year Been Physically Harmed or Verbally Threatened: No History of MDRO: No History of Other Communicable Diseases: No Tobacco Use: Current Every Day Smoker Alcohol Use: Occasionally Type of alcohol normally used: Hard Liquor In the Past 12 Months, Have Used or Abuse Any Substance: Marijuana Previous Surgical History: Yes Type / Date of Surgery: PARTIAL HYSTERECTOMY, c section, appy Anesthesia Reactions: No Malignant Hyperthermia: No Family History of Malignant Hyperthermia: No Significant Family History: Asthma, Heart disease, COPD, Diabetes, Hypertension , Renal disease Past Medical History Reviewed: Reviewed - No Changes ROS - Limitations ROS Limitations: No Limitations Constitution: REPORTS: Denies Symptoms Cardiovascular: REPORTS: Denies Cardiac Symptoms Respiratory: REPORTS: Cough Non Productive (The last 2 days) Neurological: REPORTS: Other (Radiculopathy left leg) Gastrointestinal: REPORTS: Denies GI Symptoms Endocrine: REPORTS: Denies Symptoms Musculoskeletal: REPORTS: Back Pain Genitourinary: REPORTS: Denies Symptoms Eyes: REPORTS: Denies Symptoms ENT: REPORTS: Denies Symptoms Skin: REPORTS: Denies Skin Symptoms Lympathic: REPORTS: Denies Lympathic Symptoms Immunologic: POSITIVE: Denies Symptoms Psychiatric: POSITIVE: Denies Psych Symptoms Back Physical Assessment - General Appearance General Appearance: REPORTS: Alert, Cooperative, No Evidence of Trauma, Moderate Distress. DENIES: No Acute Distress - HEENT HEENT: POSITIVE: Head Inspection Nml, Eyes Inspection Nml, Ears Inspection Nml, Nose Inspection Nml, Oral/Dental Inspect. Nml, Pharynx Inspect. Nml, PERRL, EOMI - Pupil Size Pupil Size: 3 mm: Bilateral - Neck Neck: POSITIVE: Non Tender, Painless ROM, Trachea Midline, Nexus Criteria Negative - Respiratory / CVS Respiratory / CVS: POSITIVE: Chest Non Tender, No Ecchymosis, Breath Sounds Normal, No Respiratory Distress, Heart Sounds Normal, Regular Rate/Rhythm - Abdomen Abdomen: Soft: (All Quadrants), Normal Bowel Sounds: (All Quadrants), Denies Tenderness: (All Quadrants), No Splenomegaly: (All Quadrants), No Hepatomegaly: (All Quadrants), No Guarding: (All Quadrants), No Rebound: (All Quadrants), No Palpable Pulse: (All Quadrants), No Palpabale Mass: (All Quadrants), No Distention: (All Quadrants), No Rigidity: (All Quadrants) - Back Back: REPORTS: No CVA Tenderness, Limited ROM, See Diagram. DENIES: Non Tender , Painless ROM, No Vertebral Tenderness, CVA Tenderness (R), CVA Tenderness (L) , Muscle Spasm - Skin Skin: REPORTS: Intact, Normal For Race, Warm, Dry, No Rash - Extremities Extremity Assessment: Non-Tender: (ALL), No Edema: (ALL), Normal Inspection: ( ALL), No Swelling: (ALL), Pelvis Stable: (ALL), Normal Tendon Exam: (ALL), Tender: (ALL) Musculoskeletal: REPORTS: Back Pain Peripheral Pulses: Radial (R): 2+, Radial (L): 2+, Dorsalis-pedis (R): 2+, Dorsalis-pedis (L): 2+ - Neurological / Psychological Neuro / Psych: POSITIVE: Oriented X3, ball warper tender Normal As Tested, Motor Normal, Sensation Normal, Mood Appropriate, Affect Appropriate, Other (Patient has pain on straight leg raising, left. No gross motor deficits. She complains of paresthesias to the foot.). NEGATIVE: Reflexes Normal Reflexes: Achilles (R): 3+, Achilles (L): 1+, Patellar (R): 3+, Patellar (L): 2+ , Bicep (R): 3+, Bicep (L): 3+ Images - Complete Complete: 1 - Pain on palpation 2 - Radiation of pain 3 - Radiation of pain Back Progress - Results Reviewed by me Xrays/CTs/US Reviewed: Yes Discussed with Radiologist: Yes Radiology Findings: CT scan of lumbar spine without contrast shows posterior disc osteophyte complex at T11-T12 with mild apparent left paracentral and left foraminal narrowing. Posterior disc osteophyte complex he T12-L1 without significant appearing central or foraminal stenosis. L5-S1 broad-based disc bulge with mild central canal narrowing without CT evidence of significant foraminal stenosis CBC and BMP: 02/20/17 15:45 02/20/17 15:45 - Patient's Progress Pain Medication Addressed: POSITIVE: Yes (Patient medicated with Dilaudid IV 2) School/Work Release Addressed: POSITIVE: Not Applicable Re-Examine Time: 11:50 Re-Examine Comment: Some relief with analgesia Status: POSITIVE: Improved, Re-Examined - Consult Consult (If Yes, Name of Consulting MD & Time Called): Yes (Dr. Ordonez, hospitalist, [id number]) Consulting MD will see pt:: POSITIVE: [facility] Admit Counseled: POSITIVE: Patient, RE: Lab Results, RE: Radiology Results, RE: DX, RE : Need for F/U Patient Care Time - Estimated PCT Patient Care Time (In Minutes): 60 Vital Signs - Recent Vital Signs Vital Signs: Vital Signs (Last 8 hours) Temp Pulse Resp BP Pulse Ox 02/20/17 21:00 77 16 145/85 95 02/20/17 19:00 97.8 F 02/20/17 16:14 97.9 F 68 16 140/101 93 - VS Reviewed Vital Signs Reviewed: Yes Discharge Clinical Impression: Acute low back pain, Radiculopathy Discharge Disposition: Admit to Inpatient Condition: Fair Date Decision to Admit to Inpatient: 02/20/17 Time Decision to Admit to Inpatient: 11:50
[2017-02-21] MEDS: HYDROcodone-APAP 5 MG -325 MG TABLET PO PRN ×2 (01:18→06:36)
[2017-02-21 01:24] VITALS: O2SAT 93
[2017-02-21 06:31] VITALS: BP 179/101; RESP 17
[2017-02-21] MEDS: KETOROLAC 15 MG/1 ML VIAL IVP PRN (06:35)
[2017-02-21] MEDS: Insulin Lispro Flexpen 300 UNIT/3 ML INSULN.PEN SUBCUT SCH ×2 (06:40→12:11)
[2017-02-21] MEDS ORDERED: METHYLPREDNISOLONE 4 MG TAB DOSE PACK(DAY 2-6 0700) PO SCH (07:00)
[2017-02-21] MEDS ORDERED: OMEPRAZOLE 40 MG CAPSULE PO SCH (07:00)
[2017-02-21] MEDS: CYCLOBENZAPRINE 10 MG TABLET PO PRN (07:41)
[2017-02-21] MEDS: Metoprolol TARTRATE Tab 25 MG TAB PO SCH ×2 (07:41→08:28)
[2017-02-21] MEDS ORDERED: NICOTINE 21 MG /DAY PATCH TRANSDERM SCH (09:00)
[2017-02-21] MEDS ORDERED: FLUoxetine 20 MG CAPSULE PO SCH (09:00)
[2017-02-21] MEDS ORDERED: RAMIPRIL 10 MG CAPSULE PO SCH (09:00)
[2017-02-21] MEDS ORDERED: METHYLPREDNISOLONE 4 MG TAB DOSE PACK PO SCH (09:00)
[2017-02-21] MEDS: GABAPENTIN 400 MG CAPSULE PO SCH (09:36)
--- NOTE | 2017-02-21 12:07 | DCSUMMARY ---
Hospitalization Summary Admit Date: 02/20/2017 Discharge Date: 02/21/17 Primary Diagnosis:: sciatica, left side Hospital Course: Very pleasant 51-year-old female that came in with low back pain with radiation down her left leg. A CT scan showed a disc herniation. The patient was admitted and placed on a steroid pack, muscle relaxants, and hydrocodone. I did not do IV narcotics. We discussed at length the plan in therapy for a disc herniation, and this would include physical therapy and conservative measures initially, possible steroid injection if necessary, and back surgery as a last alternative. By this morning, her pain is better, she still has leg pain but her back pain is significantly improved and she is ready to go home. I discussed a lot of lifestyle issues with her and she was drinking Dr. Blancas. I told her that she really needs a tuna diabetes up to do well with this, and I also think she needs to quit smoking so that the disc which is herniated does not dehydrate any further. I also told her to stop marijuana as this likely causing her cyclic vomiting syndrome. If she does proceed with back surgery, she will need to be off of Plavix. As an RN he felt on admission, we could not approve an MRI scan is as an outpatient procedure. I will defer arrangements of any MRI scan of the lumbar spine to the patient's outpatient providers. I warned the patient that these medications can be sedating and be very careful with their use. I did do labs to make sure that there is no evidence of any inflammatory changes with sedimentation rate and so forth to explain back pain. The patient did not have fevers. This was not infectious in etiology. No complaints of chest pain, shortness breath, nausea or vomiting. Assessment and Plan: 1. As per discharge assessments noted 2. Disposition: Patient is discharged home. 3. Condition on discharge, stable and improved. 4. Diet: regular diet 5. Activities: resume normal activities and increase as tolerated. 6. Follow-Up: 1. Primary provider in the next 7 days 2. 7. Medications at the Time of Discharge: Home Medications Medication Instructions Recorded Confirmed Type Blood-Glucose Meter [Onetouch 1 ea MC BID #1 box 11/05/15 02/20/17 Rx Ultramini] Metformin HCl 1 tab-cap PO BID #180 tab-cap 05/12/16 02/20/17 Rx Albuterol Sulfate [Proair Hfa] 1 - 2 puff INH 6XD PRN #1 inhaler 07/09/16 History Blood Sugar Diagnostic [Onetouch 1 ea IN BID #50 strip 07/09/16 02/20/17 Rx Ultra Test Strips] clopidogrel 75 mg tablet 75 mg PO DAILY #30 tab 02/02/17 02/20/17 Rx gabapentin 600 mg tablet 1,200 mg PO BID #120 tab 02/02/17 02/20/17 Rx metoprolol tartrate 25 mg tablet 25 mg PO DAILY #30 tab 02/02/17 02/20/17 Rx omeprazole 40 mg capsule,delayed 40 mg PO DAILY #90 cap 02/02/17 02/20/17 Rx release ramipril 10 mg capsule 20 mg PO DAILY #60 cap 02/02/17 02/20/17 Rx simvastatin 40 mg tablet 40 mg PO DAILY #30 tab-cap 02/02/17 02/20/17 Rx sitagliptin 100 mg tablet 100 mg PO QD #30 tab-cap 02/02/17 02/20/17 Rx metoclopramide 10 mg tablet 10 mg PO TID PRN #270 tab 02/10/17 02/20/17 Rx fluoxetine 60 mg tablet 60 mg PO DAILY #90 tab 02/15/17 02/20/17 Rx Cyclobenzaprine HCl [Flexeril] 5 mg PO TID PRN #60 tab 02/21/17 Rx HYDROcodone/APAP 5/325 Tab [[place] 1 tab PO Q4H PRN #30 tab 02/21/17 Rx 5/325 Tab] Naproxen 500 mg PO BID PRN #30 tab 02/21/17 Rx Nicotine 21mg Patch [Nicoderm CQ 1 patch TRANSDERM DAILY #30 patch 02/21/17 Rx 21mg Patch] methylPREDNISolone Dose Pack 4 mg PO BEDTIME opal 02/21/17 Rx [Medrol Dose Pack] methylPREDNISolone Dose Pack 4 mg PO DAILY@0700 opal 02/21/17 Rx [Medrol Dose Pack] methylPREDNISolone Dose Pack 4 mg PO DAILY@1200 opal 02/21/17 Rx [Medrol Dose Pack] methylPREDNISolone Dose Pack 4 mg PO DAILY@1730 opal 02/21/17 Rx [Medrol Dose Pack] methylPREDNISolone Dose Pack 8 mg PO BEDTIME opal 02/21/17 Rx [Medrol Dose Pack] 8. Time, care, counseling and coordination of care for this discharge is greater than 30 minutes. Exam - Vitals Vital Signs: Vital Signs Temperature 97.8 F Temperature Source Temporal Artery Scan Pulse Rate [Pulse Oximeter] 68 Respiratory Rate 17 Blood Pressure [Left Arm] 179/101 Pulse Ox 93 Oxygen Delivery Method Room Air Height 5 ft 2 in Weight 169 lb 12.8 oz Vital Signs - Last Taken Temperature 97.8 F 02/21/17 06:29 Pulse Rate 68 02/21/17 06:29 Respiratory Rate 17 02/21/17 06:29 Blood Pressure 179/101 02/21/17 06:29 Pulse Ox 93 02/21/17 06:29 - General General Appearance: No Acute Distress, Cooperative - Head Head Exam: Atraumatic - Eye Eye Exam: POSITIVE: No Scleral Icterus - ENT ENT Exam: POSITIVE: Mucous Membranes Moist - Respiratory Respiratory Exam: POSITIVE: Clear to Auscultation - Bilaterally, Breathing Non Labored - Cardiovascular Cardiovascular Exam: POSITIVE: RRR, No Murmur, No Clicks, No Gallops, No Rubs, No JVD - GI/Abdominal GI/Abdominal Exam: POSITIVE: Normal Bowel Sounds, Non Tender, Non Distended, Soft - Extremities Extremities Exam: POSITIVE: No Clubbing Present, No Edema Present, No Cyanosis Present - Neurological Neurological Exam: POSITIVE: Alert, Oriented x 3, No Facial Droop, Speech Intact / Clear, Moves All Extremities Equally Data Peritnent Studies: Laboratory Results 02/20/17 02/20/17 Range/Units 15:45 15:45 WBC 8.09 (4.8-10.8) 10^3/uL RBC 3.61 L (4.20-5.40) 10^6/uL Hgb 12.2 (12.0-16.0) g/dL Hct 36.8 L (37.0-47.0) % MCV 101.9 H (81-99) FL MCH 33.8 H (27-31) PG MCHC 33.2 (33-37) g/dL RDW Std Deviation 53.4 H (39-50) fL RDW Coeff of Vaishali 14.5 (11.5-14.5) % Plt Count 225 (140-350) 10*3/uL MPV 8.9 (7.4-12.2) FL Immature Gran % (Auto) 0.2 (0-5) % Neut % (Auto) 56.0 (50-80) % Lymph % (Auto) 34.4 (10-50) % Morrison % (Auto) 8.2 (5-15) % Eos % (Auto) 1.0 (0-8) % Baso % (Auto) 0.2 (0-1) % Immature Gran # (Auto) 0.02 10*3/UL Neut # (Auto) 4.53 10*3/UL Lymph # (Auto) 2.78 10*3/uL Morrison # (Auto) 0.66 (0.3-0.8) 10*3/UL Eos # (Auto) 0.08 10*3/UL Baso # (Auto) 0.02 10*3/UL WBC Morphology Comment Normal morphology (NORM) Plt Morphology Comment Normal morphology (NORM) RBC Morph Comment Normal morphology (NORM) ESR 2 (0-20) MM/HR Sodium 140 (135-145) meq/L Potassium 4.0 (3.8-5.2) meq/L Chloride 110 (98-112) meq/L Carbon Dioxide 21 L (23-33) meq/L Anion Gap 9 (5-20) BUN 13 (7-22) mg/dL Creatinine 0.8 (0.50-1.20) mg/dL Estimated GFR > 60 (>60 ml/min/1.73m(2)) BUN/Creatinine Ratio 16.25 (6-20) Glucose 154 H (78-110) mg/dL Calculated Osmolality 292.0 (267-292) mOsm/kg Calcium 8.6 L (8.7-10.7) mg/dL Total Bilirubin 0.2 L (0.3-1.2) mg/dL AST 30 (8-39) IU/L ALT 28 (9-52) IU/L Alkaline Phosphatase 73 (38-126) IU/L Total Protein 6.2 (6.1-8.0) g/dL Albumin 3.4 L (3.5-4.8) g/dL Globulin 2.8 (2.50-4.10) g/dL Albumin/Globulin Ratio 1.20 L (1.3-2.0) mg/g Patient Problems - Patient Problem List (1) Sciatica Current Visit: Yes Status: Acute Code(s): M54.30 - Sciatica, unspecified side Qualifiers: Laterality: left Qualified Code(s): M54.32 - Sciatica, left side Category: Medical (2) DMII (diabetes mellitus, type 2) Current Visit: Yes Status: Acute Code(s): E11.9 - Type 2 diabetes mellitus without complications Qualifiers: Diabetes mellitus complication status: with neurologic complications Diabetes mellitus complication detail: with autonomic neuropathy Diabetes mellitus termite control representative insulin use: without termite control representative use Qualified Code(s): E11.43 - Type 2 diabetes mellitus with diabetic autonomic (poly)neuropathy Category: Medical (3) Tobacco abuse Current Visit: Yes Status: Acute Code(s): Z72.0 - Tobacco use Category: Medical (4) Marijuana abuse Current Visit: Yes Status: Acute Code(s): F12.10 - Cannabis abuse, uncomplicated Category: Medical (5) Hypertension Current Visit: Yes Status: Chronic Code(s): I10 - Essential (primary) hypertension Qualifiers: Hypertension type: essential hypertension Qualified Code(s): I10 - Essential (primary) hypertension Category: Medical (6) Cyclic vomiting syndrome Current Visit: Yes Status: Acute Code(s): G43.A0 - Cyclical vomiting, not intractable Qualifiers: Vomiting Intractability: intractable Nausea presence: with nausea Qualified Code(s): G43.A1 - Cyclical vomiting, intractable Category: Medical
[2017-02-21] MEDS ORDERED: Simvastatin Tab 40 MG TAB PO SCH (21:00)
[2017-02-22] MEDS ORDERED: METHYLPREDNISOLONE 4 MG TAB DOSE PACK(DAY 3-5 2100) PO SCH (21:00)
== END 2017-02-21 12:27 | disposition home or self-care (01) ==
LOC: MED/SURG 09:25 → ER 09:25
PROVIDERS: ADMIT Family Medicine; ATTEND Family Medicine

== ENCOUNTER 2018-05-10 15:29 | Inpatient (IN) ==
[2018-05-10] MEDS ORDERED: NITROGLYCERIN 0.4 MG SL TAB (BOTTLE OF 3) SL PRN (15:55)
[2018-05-10] MEDS ORDERED: Sodium Chloride 0.9% 1,000 ML PRIMARY IV ONE (15:55)
[2018-05-10] MEDS ORDERED: ONDANSETRON 4 MG/2 ML VIAL IVP ONE (15:55)
[2018-05-10] MEDS ORDERED: ASPIRIN 81 MG (BABY) CHEWABLE TABLET PO ONE (15:55)
[2018-05-10] MEDS ORDERED: MORPHINE SULFATE 4 MG/1 ML IVP ONE (15:55)
[2018-05-10] MEDS ORDERED: NITROGLYCERIN 0.4 MG SL TAB (BOTTLE OF 3) SL ONE (16:02)
[2018-05-10] MEDS ORDERED: MORPHINE SULFATE 4 MG/1 ML ONE (16:02)
--- NOTE | 2018-05-10 16:03 | EKG ---
[address] [address] Measurements Intervals [place] Rate: 113 P: 38 UT: 176 QRS: -73 QRSD: 146 T: 93 QT: 372 QTc: 439 Interpretive Statements SINUS TACHYCARDIA POSSIBLE LEFT ATRIAL ENLARGEMENT MARKED LEFT AXIS DEVIATION [QRS AXIS < -30] LEFT BUNDLE BRANCH BLOCK Compared to ECG 04/26/2018 19:51:17 Sinus rhythm no longer present Electronically Signed On 05-11-18 15:21:49 MDT by Mehdi Roldan [email or web address]
[2018-05-10 16:06] LABS: VENOUS PH 7.46 (7.32-7.42)
[2018-05-10 16:06] LABS: BASOPHILS # (AUTO) 0.02 10*3/UL; BASOPHILS % (AUTO) 0.2 % (0-1); EOSINOPHILS # (AUTO) 0.04 10*3/UL; EOSINOPHILS % (AUTO) 0.4 % (0-8); Hemoglobin [HGB] 13.1 g/dL (12.0-16.0); LYMPHOCYTES # (AUTO) 2.36 10*3/uL; MEAN CORPUSCULAR HEMOGLOBIN 35.1 PG (27-31); MEAN CORPUSCULAR HGB CONC 33.6 g/dL (33-37); MEAN CORPUSCULAR VOLUME 104.6 FL (81-99); MONOCYTES # (AUTO) 1.16 10*3/UL (0.3-0.8); MONOCYTES % (AUTO) 10.7 % (5-15); NEUTROPHILS # (AUTO) 7.27 10*3/UL; NEUTROPHILS % (AUTO) 66.7 % (50-80); RED BLOOD COUNT 3.73 10^6/uL (4.20-5.40)
[2018-05-10 16:11] LABS: PLATELET MORPHOLOGY COMMENT NORMAL MORPHOLOGY (NORM); RBC MORPHOLOGY COMMENT NORMAL MORPHOLOGY (NORM); WBC MORPHOLOGY COMMENT NORMAL MORPHOLOGY (NORM)
[2018-05-10 16:19] LABS: SERUM ALBUMIN 3.9 g/dL (3.5-4.8)
--- NOTE | 2018-05-10 16:28 | DI ---
XR CXR 1VW,05/10/2018 3:55 PM: Clinical History: Chest pain Previous Exam: January 06, 2018 Findings: A single frontal radiograph of the chest is obtained, and demonstrate clear lungs. The cardiomediasti num and bony thorax are unremarkable. Overlying EKG leads are seen. Impression: No acute cardiopulmonary disease.
[2018-05-10] MEDS ORDERED: HYDROmorphone 2 MG/1 ML IVP ONE ×2 (16:37→17:46)
[2018-05-10 16:40] LABS: LIPASE 405 IU/L (23-300)
[2018-05-10] MEDS ORDERED: HYDROmorphone 2 MG/1 ML ONE (16:41)
--- NOTE | 2018-05-10 18:16 | DI ---
CT CTA Chest Non-Coronary WWO,05/10/2018 4:47 PM: Clinical History: Pain and elevated d-dimer Previous Exam: January 05, 2018 Findings: Multiple helically acquired CT images are obtained through the chest following a CT chest angiogram p rotocol, and demonstrate mild cardiomegaly. There is no filling defect or truncation within the pulmo nary arteries to suggest pulmonary embolism. The aorta is unremarkable. There is no mediastinal lymphadenopathy. Mild degenerative changes of the spine are seen. The gallbladder is unremarkable. Impression: 1. No evidence of pulmonary embolism. 2. Mild cardiomegaly.
--- NOTE | 2018-05-10 18:20 | DI ---
CT Abdomen/Pelvis W Contrast,05/10/2018 4:47 PM: Clinical History: Epigastric and substernal pain with elevated lipase. Previous Exam: October 27, 2012 Findings: Multiple helically acquired CT images are obtained through the abdomen and pelvis following the intra venous ministration of 75 cc of Isovue 300. There is mild fatty infiltration of liver. The gallbladder is normal. The spleen, pancreas, adrenals and kidneys are unremarkable except for a lipid rich right adrenal adenoma. Postsurgical changes are seen in the right lower quadrant. Evaluation of the colon is limited due to decompression. Small bowel loops are unremarkable. Impression: No acute intra-abdominal pathology.
--- NOTE | 2018-05-10 19:03 | PDOC ---
Chest Pain HPI - General Chief Complaint: Chest Pain Stated Complaint: chest pain and upper abdominal pain Date Seen by Provider: 05/10/18 Time Seen by Provider: 15:45 Source: Patient, Old records Exam Limitations: POSITIVE: No limitations Treatment Prior to Arrival: REPORTS: None Nurse's Notes Reviewed & Considered: Yes - History of Present Illness Initial Comments: The patient is a 52-year-old female who arrives at the emergency room by private auto. 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 She also has some pain in the epigastric area and right of the epigastrium. She states she's had a cough for about the past week with some associated shortness of breath. She states she has a sensation of "something pushing on my chest". Patient was admitted to our facility in December 2017 with cough and chest pain. She was found to probably have pneumonia. She underwent a cardiac stress test which showed a decreased ejection fracture over the previous stress test. Patient was referred to [facility] for further evaluation. Patient states that she had coronary angiography and she states she was told this was normal; they did not do any stenting or angioplasty. I have requested records from [facility], specifically her cardiac catheterization report, but so far I have not received this. Patient has a history of hypertension, diabetes mellitus, tobacco abuse and alcohol abuse. She states that she is "trying to cut back" on her alcohol abuse, and a one time she was drinking a fifth of alcohol daily. She states she had a myocardial infarction 2-4 years ago and was treated without any stenting. She has a history of left bundle-branch block. She still smokes. Body Location Affected: REPORTS: Chest, Abdomen Timing: REPORTS: Abrupt, Constant Duration: 1-3 hours Severity: Severe Persistent/Worse since (date): 05/10/18 Persistent/Worse since (time): 13:30 Context: REPORTS: Rest, Activity (Watching TV) Quality: REPORTS: "Pain", Tenderness (Tenderness on palpation over the lower sternum) Radiation: REPORTS: Back, See Diagram Associated Symptoms: REPORTS: Nausea, Productive Cough (sputum) (Mildly productive of mucoid sputum) Modifying Factors: improves with: Pressing On Area Similar Symptoms Previously: Yes (as above) Recently seen/treated/hospitalized: Yes (as above) Any Prior Injuries Related to Current Complaint?: No - Patient Home Medications Home Medications: Home Medications Blood-Glucose Meter [[employer] Ultramini] 1 ea MC BID #1 box 11/05/15 albuterol sulfate HFA 90 mcg/actuation aerosol inhaler 1 puff INH 6XD PRN #8 g 03/27/18 blood sugar diagnostic strips 1 strip MISCELLANEOUS BID strip 04/11/18 nicotine 21 mg/24 hr daily transdermal patch 1 patch TRANSDERM Q24H #28 ea 04/11/18 potassium chloride ER 10 mEq capsule,extended release 10 meq PO QDAY #90 cap 04/11/18 cholecalciferol (vitamin D3) 2,000 unit capsule 2,000 unit PO QDAY #30 cap 04/13/18 multivitamin capsule 1 cap PO QDAY #30 cap 04/13/18 budesonide 0.25 mg/2 mL suspension for nebulization 0.25 mg INH BID #120 ml 04/26/18 chlordiazepoxide 5 mg capsule 5 mg PO Q8H PRN #60 cap 04/26/18 ipratropium-albuterol 0.5 mg-3 mg(2.5 mg base)/3 mL nebulization soln 3 ml INH Q6-8H PRN #90 ml 04/26/18 fluoxetine 60 mg tablet 60 mg PO QDAY #90 tab 05/01/18 furosemide 20 mg tablet 40 mg PO QDAY #180 tab 05/01/18 gabapentin 600 mg tablet 1,200 mg PO TID #180 tab 05/01/18 metoprolol succinate ER 25 mg tablet,extended release 24 hr 25 mg PO QDAY #90 tab 05/01/18 omeprazole 40 mg capsule,delayed release 40 mg PO QDAY #90 cap 05/01/18 ondansetron 4 mg disintegrating tablet 4 mg PO Q4H PRN #30 tab 05/01/18 ramipril 10 mg capsule 20 mg PO QDAY #180 cap 05/01/18 simvastatin 40 mg tablet 40 mg PO QDAY #90 tab-cap 05/01/18 sitagliptin 100 mg tablet 100 mg PO QDAY #90 tab-cap 05/01/18 spironolactone 25 mg tablet 25 mg PO QDAY #90 tab 05/01/18 - Patient Allergies Allergies/Adverse Reactions: Allergies Allergy/AdvReac Type Severity Reaction Status Date / Time quetiapine fumarate Allergy Intermediate confusion Verified 05/10/18 18:09 [From Seroquel] Sulfa (Sulfonamide Allergy Intermediate HIVES Verified 05/10/18 18:09 Antibiotics) sulfamethoxazole Allergy Intermediate HIVES Verified 05/10/18 18:09 [From Bactrim] trimethoprim [From Bactrim] Allergy Intermediate HIVES Verified 05/10/18 18:09 tramadol Allergy Mild RASH Verified 05/10/18 18:09 Past Medical History - heen HEENT History: Other (please comment) Additional HEENT History: MISSING TEETH Cardiovascular History: Hypertension, Previous MO, Hyperlipidemia Additional Cardiovasular History: MO IN 2013. Cardiac Catheter in 2018 Respiratory History: Asthma, COPD Additional Respiratory History: chronic tobacco abuse Gastrointestinal History: GERD, Other (please comment) Additional Gastrointestinal History: delayed gastric emptying Genitourinary History: Denies History Endocrine History: Type 2 Diabetes (oral) Musculoskeletal History: Arthritis, Fibromyalgia, Back Pain Prosthesis or Implant: No Neurological History: Migraines Blood Disorders: Denies History Psychiatric History: Depression, Anxiety Disorders History of Sexually Transmitted Diseases: No Cancer History: Denies History In Past Year Been Physically Harmed or Verbally Threatened: No History of MDRO: No History of Other Communicable Diseases: No Tobacco Use: Current Every Day Smoker Alcohol Use: Occasionally In the Past 12 Months, Have Used or Abuse Any Substance: Marijuana Previous Surgical History: Yes Type / Date of Surgery: PARTIAL HYSTERECTOMY, , APPENDECTOMY Anesthesia Reactions: No Malignant Hyperthermia: No Significant Family History: Asthma, Heart disease, COPD, Diabetes, Hypertension, Renal disease Past Medical History Reviewed: Reviewed - No Changes ROS - Limitations ROS Limitations: No Limitations Constitution: REPORTS: Denies Symptoms Cardiovascular: REPORTS: Chest Pain Respiratory: REPORTS: Cough Non Productive Neurological: REPORTS: Denies Neuro Symptoms Gastrointestinal: REPORTS: Abdominal Pain (Upper and epigastric abdominal pain) Endocrine: REPORTS: Denies Symptoms Musculoskeletal: REPORTS: Denies MS Symptoms Genitourinary: REPORTS: Denies Symptoms Eyes: REPORTS: Denies Symptoms ENT: REPORTS: Denies Symptoms Skin: REPORTS: Denies Skin Symptoms Lympathic: REPORTS: Denies Lympathic Symptoms Immunologic: POSITIVE: Denies Symptoms Psychiatric: POSITIVE: Denies Psych Symptoms Chest Pain PE - General Appearance General Appearance: REPORTS: Alert, Cooperative, No Evidence of Trauma, Moderate Distress. DENIES: No Acute Distress - HEENT HEENT: POSITIVE: Head Inspection Nml, Eyes Inspection Nml, Ears Inspection Nml, Nose Inspection Nml, Oral/Dental Inspect. Nml, Pharynx Inspect. Nml, PERRL, EOMI - Neck Neck: REPORTS: Normal Inspection, No Carotid Bruit - Respiratory Respiratory: REPORTS: No Respiratory Distress, Breath Sounds Normal, Chest Non- Tender - Cardiovascular Cardiovascular: REPORTS: Regular Rate and Rhythm, Heart Sounds Normal, Equal Pulses, Strong Pulses, No Murmur, No Gallop, No Friction Rub, No JVD Peripheral Pulses: Radial (R): 2+, Radial (L): 2+ - Abdomen Abdomen: Soft: (All Quadrants), Normal Bowel Sounds: (All Quadrants), Denies Tenderness: (LLQ), (RLQ), No Splenomegaly: (All Quadrants), No Hepatomegaly: (All Quadrants), No Guarding: (All Quadrants), No Rebound: (All Quadrants), No Palpable Pulse: (All Quadrants), No Palpabale Mass: (All Quadrants), No Distention: (All Quadrants), No Rigidity: (All Quadrants), Tenderness Noted: (RUQ) Additional Abdominal Details: Abdominal examination shows bowel sounds to be active. Patient does have discomfort on direct palpation right upper quadrant, especially right of the epigastrium. Patient has had an appendectomy; no cholecystectomy. No masses, organomegaly or rebound. 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 CTA chest is normal. CT abdomen and pelvis is reported as normal; gallbladder normal. Lab Results Reviewed by Me: Yes (lipase 405; sodium 131; potassium 5.2) CBC and BMP: 05/10/18 16:00 05/10/18 16:00 Lab Results:: Laboratory Results 05/10/18 05/10/18 05/10/18 11:56 16:00 16:00 WBC 10.88 H RBC 3.73 L Hgb 13.1 Hct 39.0 MCV 104.6 H MCH 35.1 H MCHC 33.6 RDW Std Deviation 58.1 H RDW Coeff of Vaishali 15.4 H Plt Count 222 MPV 10.0 Immature Gran % (Auto) 0.3 Neut % (Auto) 66.7 Lymph % (Auto) 21.7 [place] % (Auto) 10.7 Eos % (Auto) 0.4 Baso % (Auto) 0.2 Immature Gran # (Auto) 0.03 Neut # (Auto) 7.27 Lymph # (Auto) 2.36 [place] # (Auto) 1.16 H Eos # (Auto) 0.04 Baso # (Auto) 0.02 WBC Morphology Comment Normal morphology Plt Morphology Comment Normal morphology RBC Morph Comment Normal morphology D-Dimer 0.80 H VBG pH 7.46 H VBG pCO2 28 L VBG HCO3 20 L VBG Base Excess -4 L Sodium Potassium Chloride Carbon Dioxide Anion Gap BUN Creatinine Estimated GFR BUN/Creatinine Ratio Glucose Calculated Osmolality Calcium Total Bilirubin AST ALT Alkaline Phosphatase CK-MB (CK-2) Troponin I NT-Pro-B Natriuret Pep Total Protein Albumin Globulin Albumin/Globulin Ratio Amylase Lipase Serum Alcohol 05/10/18 05/10/18 05/10/18 16:00 16:00 16:15 WBC RBC Hgb Hct MCV MCH MCHC RDW Std Deviation RDW Coeff of Vaishali Plt Count MPV Immature Gran % (Auto) Neut % (Auto) Lymph % (Auto) [place] % (Auto) Eos % (Auto) Baso % (Auto) Immature Gran # (Auto) Neut # (Auto) Lymph # (Auto) [place] # (Auto) Eos # (Auto) Baso # (Auto) WBC Morphology Comment Plt Morphology Comment RBC Morph Comment D-Dimer VBG pH VBG pCO2 VBG HCO3 VBG Base Excess Sodium 131 L Potassium 5.2 Chloride 104 Carbon Dioxide 21 L Anion Gap 6 BUN 22 Creatinine 1.0 Estimated GFR 59 BUN/Creatinine Ratio 22.00 H Glucose 132 H Calculated Osmolality 276.0 Calcium 9.1 Total Bilirubin 0.5 AST 48 H ALT 28 Alkaline Phosphatase 121 CK-MB (CK-2) 0.79 Troponin I < 0.012 NT-Pro-B Natriuret Pep Total Protein 6.6 Albumin 3.9 Globulin 2.7 Albumin/Globulin Ratio 1.40 Amylase 82 Lipase 405 H Serum Alcohol 05/10/18 05/10/18 18:31 18:34 WBC RBC Hgb Hct MCV MCH MCHC RDW Std Deviation RDW Coeff of Vaishali Plt Count MPV Immature Gran % (Auto) Neut % (Auto) Lymph % (Auto) [place] % (Auto) Eos % (Auto) Baso % (Auto) Immature Gran # (Auto) Neut # (Auto) Lymph # (Auto) [place] # (Auto) Eos # (Auto) Baso # (Auto) WBC Morphology Comment Plt Morphology Comment RBC Morph Comment D-Dimer VBG pH VBG pCO2 VBG HCO3 VBG Base Excess Sodium Potassium Chloride Carbon Dioxide Anion Gap BUN Creatinine Estimated GFR BUN/Creatinine Ratio Glucose Calculated Osmolality Calcium Total Bilirubin AST ALT Alkaline Phosphatase CK-MB (CK-2) Troponin I NT-Pro-B Natriuret Pep 8310 H Total Protein Albumin Globulin Albumin/Globulin Ratio Amylase Lipase Serum Alcohol < 10 EKG Interpreted/Reviewed By Me:: Yes (left bundle-branch block; seen on previous electrocardiograms) EKG Interpretation:: POSITIVE: Normal Sinus Rhythm, Normal Rate. NEGATIVE: Normal Intervals (Left bundle-branch block), Normal [place] (Left bundle-branch block), Normal QRS (Left bundle-branch block), Normal ST/T (Left bundle-branch block), Abnormal EKG (Left bundle-branch block) - Patient's Progress Pain Medication Addressed: POSITIVE: Yes (Nitroglycerin given with no change in pain. Patient then given 4 mg of morphine sulfate IV and then 2 mg of Dilaudid IV with some alleviation of pain. Patient given a third milligram of Dilaudid IV while in the emergency room and she is fairly comfortable on discharge.) School/Work Release Addressed: POSITIVE: Not Applicable Re-Examine Time: 18:45 Re-Examine Comment: Patient more comfortable on discharge from the emergency room. Results of coronary artery catheterization done in December still has not been received from [facility]. Her chest wall is exquisitely tender over the sternum. I believe that her chest chest pain is mainly musculoskeletal. She also has some pancreatitis, probably of alcoholic origin. Case was discussed with hospitalist, who was admitted patient for further evaluation and treatment. Status: POSITIVE: Improved, Re-Examined Quality Measure Initiative: CP/AMI: POSITIVE: EKG, ASA - Consult Consult (If Yes, Name of Consulting MD & Time Called): Yes (Dr. Fernandez, hospitalist, [id number]) Consulting MD will see pt:: POSITIVE: [facility] Admit Counseled: POSITIVE: Patient, RE: Lab Results, RE: Radiology Results, RE: DX, RE: Need for F/U Patient Care Time - Estimated PCT Patient Care Time (In Minutes): 50 Vital Signs - Recent Vital Signs Vital Signs: Vital Signs (Last 8 hours) Temp Pulse Resp BP 05/10/18 15:45 97.8 F 91 24 179/137 - VS Reviewed Vital Signs Reviewed: Yes Discharge Clinical Impression: Atypical chest pain, Pancreatitis Discharge Disposition: Admit to Inpatient Condition: Fair Follow Up With: Zulema German [Primary Care Provider] - Date Decision to Admit to Inpatient: 05/10/18 Time Decision to Admit to Inpatient: 18:45
[2018-05-10] MEDS ORDERED: ACETAMINOPHEN 325 MG TABLET PO PRN (20:11)
[2018-05-10] MEDS ORDERED: ONDANSETRON 4 MG/2 ML VIAL IVP PRN (20:11)
[2018-05-10] MEDS ORDERED: LIDOCAINE W/ SODIUM BICARB 0.5 ML SYR SUBD PRN (20:11)
[2018-05-10] MEDS ORDERED: CALCIUM CARBONATE 500 MG (TUMS) CHEWABLE TABLET PO PRN (20:11)
[2018-05-10] MEDS ORDERED: DOCUSATE 100 MG CAPSULE PO PRN (20:11)
--- NOTE | 2018-05-10 20:22 | PDOC ---
HPI - History of Present Illness Date of Service: 05/10/18 Time of Service: 21:30 Chief Complaint: Pain in the lower chest that goes to the back that started today also epigastric pain. History of Present Illness: This is a 52 years old female with medical history significant for history of hypertension, diabetes, diabetic gastroparesis, neuropathy, depression, hypercholesterolemia, COPD, alcohol abuse, admission back in December 2017 for p neumonia, alcohol withdrawal and was transferred to [facility] for abnormal stress test which showed mild/minimal coronary artery disease who presented to the hospital with history of pain felt in the lower chest and epigastric area that started in the afternoon she said she was sitting watching TV when she started to have the pain the pain went to the back no radiation elsewhere. Pain was severe according to her. no shortness of breath. Because of all the symptoms she came into the ER. Blood pressure was elevated at 167/123, she was given multiple pain medications evaluation revealed mildly elevated lipase and was admitted. She had a CT of the chest and abdomen did not show significant findings. when She came to the floor she continued to complain from pain in epigastric area and chest. She said she drinks fifth a day last time she had a drink was 4 days ago she and as she is trying to quit drinking. she says he tends to vomit when she takes her medication and she vomited this morning. Past Medical History Medical History: 1. Diabetes type II, complicated by neuropathy and gastropathy. 2. Diabetic neuropathy. 3. Hypertension. 4. Bipolar disorder. 5. Depression. 6. tobacco abuse. 7. GERD, with history of esophageal stricture. 8. IBS. 10. Diabetic gastropathy. 11. Obstructive sleep apnea she's not on CPAP. 12 history of silent heart attack before. 13. COPD. 14. Admission December 2017 for pneumonia, alcohol withdrawal was transferred because of abnormal stress test. 15. Cardiac catheterization done December 2017 showed mild/minimal coronary artery disease. There was only 20% diffuse stenosis in the mid left anterior descending artery. Ejection fraction was 50- 55%. There was no evidence of CHF on cardiac catheter. Surgical History: 1. Hysterectomy with left oophorectomy. 2. Appendectomy Pertinent Family History: Father from [place] at age 64. significant for CAD Past Social History: smokes cigarettes 1 pack a day. The patient drinks a pint a day for 34 years. . She did not admit to me but did admit to the RN that she smokes marijuana daily. Tobacco Use: Current Every Day Smoker Do you dip or chew tobacco: No In the Past 12 Months, Have Used or Abuse Any of the Following Substance: Marijuana Medication / Allergies Home Medications: Home Medications Medication Instructions Recorded Confirmed Type Blood-Glucose Meter [[employer] 1 ea MC BID #1 box 11/05/15 05/10/18 Rx Ultramini] albuterol sulfate HFA 90 1 puff INH 6XD PRN #8 g 03/27/18 05/10/18 Rx mcg/actuation aerosol inhaler blood sugar diagnostic strips 1 strip MISCELLANEOUS BID strip 04/11/18 05/10/18 History nicotine 21 mg/24 hr daily 1 patch TRANSDERM Q24H #28 ea 04/11/18 05/10/18 Rx transdermal patch potassium chloride ER 10 mEq 10 meq PO QDAY #90 cap 04/11/18 05/10/18 Rx capsule,extended release cholecalciferol (vitamin D3) 2,000 2,000 unit PO QDAY #30 cap 04/13/18 05/10/18 Rx unit capsule multivitamin capsule 1 cap PO QDAY #30 cap 04/13/18 05/10/18 Rx budesonide 0.25 mg/2 mL suspension 0.25 mg INH BID #120 ml 04/26/18 05/10/18 Rx for nebulization chlordiazepoxide 5 mg capsule 5 mg PO Q8H PRN #60 cap 04/26/18 05/10/18 Rx ipratropium-albuterol 0.5 mg-3 3 ml INH Q6-8H PRN #90 ml 04/26/18 05/10/18 Rx mg(2.5 mg base)/3 mL nebulization soln fluoxetine 60 mg tablet 60 mg PO QDAY #90 tab 05/01/18 05/10/18 Rx furosemide 20 mg tablet 40 mg PO QDAY #180 tab 05/01/18 05/10/18 Rx gabapentin 600 mg tablet 1,200 mg PO TID #180 tab 05/01/18 05/10/18 Rx metoprolol succinate ER 25 mg 25 mg PO QDAY #90 tab 05/01/18 05/10/18 Rx tablet,extended release 24 hr omeprazole 40 mg capsule,delayed 40 mg PO QDAY #90 cap 05/01/18 05/10/18 Rx release ondansetron 4 mg disintegrating 4 mg PO Q4H PRN #30 tab 05/01/18 05/10/18 Rx tablet ramipril 10 mg capsule 20 mg PO QDAY #180 cap 05/01/18 05/10/18 Rx simvastatin 40 mg tablet 40 mg PO QDAY #90 tab-cap 05/01/18 05/10/18 Rx sitagliptin 100 mg tablet 100 mg PO QDAY #90 tab-cap 05/01/18 05/10/18 Rx spironolactone 25 mg tablet 25 mg PO QDAY #90 tab 05/01/18 05/10/18 Rx Allergies/Adverse Reactions: Allergies Allergy/AdvReac Type Severity Reaction Status Date / Time quetiapine fumarate Allergy Intermediate confusion Verified 05/10/18 18:09 [From Seroquel] Sulfa (Sulfonamide Allergy Intermediate HIVES Verified 05/10/18 18:09 Antibiotics) sulfamethoxazole Allergy Intermediate HIVES Verified 05/10/18 18:09 [From Bactrim] trimethoprim [From Bactrim] Allergy Intermediate HIVES Verified 05/10/18 18:09 tramadol Allergy Mild RASH Verified 05/10/18 18:09 Review of Systems - Review of Systems All Systems: Reviewed & No Additional Complaints Except as Stated Exam - Vitals Vital Signs: Vital Signs Temperature 97.9 F Temperature Source Temporal Artery Scan Pulse Rate [Pulse Oximeter] 98 Respiratory Rate 20 Blood Pressure [Left Arm] 167/124 Pulse Ox 94 Oxygen Delivery Method Room Air Height 5 ft 2 in Weight 191 lb 12.8 oz - General General Appearance: No Acute Distress, Cooperative, Obese - Head Head Exam: Normal Inspection - Eye Eye Exam: POSITIVE: Normal Appearance - ENT ENT Exam: POSITIVE: Normal Exam - Neck Neck Exam: Normal Inspection - Respiratory Respiratory Exam: POSITIVE: Clear to Auscultation - Bilaterally - Cardiovascular Cardiovascular Exam: POSITIVE: RRR - GI/Abdominal GI/Abdominal Exam: POSITIVE: Normal Bowel Sounds, Non Distended, Soft, No Organomegaly Additional GI/Abdominal Exam Details: There is tenderness present in the epigastric area. - Rectal Rectal Exam: POSITIVE: Deferred - External Exam: POSITIVE: Deferred Exam: POSITIVE: Deferred - Extremities Extremities Exam: POSITIVE: Normal Inspection - Back Back Exam: POSITIVE: Normal Inspection - Neurological Neurological Exam: POSITIVE: Alert, Oriented x 3, CN II-XII Intact - Psychiatric Psychiatric Exam: POSITIVE: Normal Affect - Integumentary Integumentary Exam: POSITIVE: Normal Color Results - Labs CBC and BMP: 05/10/18 16:00 05/10/18 16:00 - EKG Data -: EKG Interpreted by Me Rate: Tachycardia (Sinus tachycardia with left bundle branch block which is old) EKG Shows Normal: Sinus Rhythm - Imaging Status: Report Reviewed by Me (CT chest 1. No evidence of pulmonary embolism. 2. Mild cardiomegaly. CT abdomen No acute intra-abdominal pathology.) Assessment and Plan - Patient Problems (1) Atypical chest pain Current Visit: Yes Status: Acute Comment: Her pain is atypical, she had a cardiac catheter a few months ago and was nonsignificant. I think will rule her out out beacuse of her risk factors. May be related to high blood pressure or esophagitis/ gastritis. Will continue with her usual blood pressure medication including ramipril, spironolactone but will switch the metoprolol to Coreg and maybe that would give us a better control and will adjust gradually. will add IV protonix Code(s): R07.89 - Other chest pain (2) Pancreatitis Current Visit: Yes Status: Acute Comment: It's possible that she has also pancreatitis although seems to be mild. Will put on her some clear liquids some IV fluids and repeat her labs tomorrow will order also ultrasound of her gallbladder tomorrow. Code(s): K85.90 - Acute pancreatitis without necrosis or infection, unspecified (3) Alcohol abuse Current Visit: No Status: Acute Comment: She has a history of alcohol abuse and she's been using Librium as needed will put her on CIWA scale. Does not appear to be in withdrawal right now. Code(s): F10.10 - Alcohol abuse, uncomplicated (4) Chronic obstructive lung disease Current Visit: No Status: Chronic Comment: Continue her nebulizer. Qualifiers: COPD type: chronic bronchitis Chronic bronchitis type: unspecified Qu alified Code(s): J42 - Unspecified chronic bronchitis (5) Gastroesophageal reflux disease Current Visit: No Status: Chronic Comment: We'll put her on IV Protonix in case there is an element of esophagitis/gastritis (6) Elevated brain natriuretic peptide (BNP) level Current Visit: No Status: Acute Comment: Her BNP is elevated may be related to the underlying COPD with possible pulmonary hypertension. Will put her on some IV Lasix will give cautious amount of fluid if she can tolerate diet then maybe stop the fluid tomorrow. Code(s): R79.89 - Other specified abnormal findings of blood chemistry (7) Diabetes mellitus, type 2 Current Visit: No Status: Chronic Comment: We'll watch her blood sugar. She is on Januvia. Qualifiers: Diabetes mellitus terminal block assembler insulin use: with terminal block assembler use Diabetes mellitus complication status: without complication Qualified Code(s): E11.9 - Type 2 diabetes mellitus without complications; Z79.4 - MCFP (current) use of insulin (8) Diabetic neuropathy Current Visit: No Status: Chronic Comment: Continue Neurontin Qualifiers: Diabetes mellitus type: type 2 Diabetes mellitus complication detail: diabetic polyneuropathy Qualified Code(s): E11.42 - Type 2 diabetes mellitus with diabetic polyneuropathy
[2018-05-10] MEDS: CARVEDILOL 6.25 MG TABLET PO SCH (20:27)
[2018-05-10] MEDS: Lactated Ringers 1,000 ML PRIMARY IV SCH (20:27)
[2018-05-10] MEDS: GABAPENTIN 400 MG CAPSULE PO SCH (20:27)
[2018-05-10] MEDS: HYDROmorphone 2 MG/1 ML IVP PRN ×2 (20:27→23:40)
[2018-05-10] MEDS ORDERED: LORazepam 1 mg tab (ETOH withdrawal) PO PRN (20:28)
[2018-05-10] MEDS ORDERED: LORazepam Inj(ETOH withdrawal) 2 MG/ML VIAL IVP PRN (20:28)
[2018-05-10] MEDS ORDERED: Simvastatin Tab 40 MG TAB PO SCH (21:00)
[2018-05-10] MEDS ORDERED: CARVEDILOL 3.125 MG TABLET PO ONE (23:45)
[2018-05-11] MEDS: Lactated Ringers 1,000 ML PRIMARY IV SCH (05:05)
[2018-05-11 05:10] LABS: BASOPHILS # (AUTO) 0.01 10*3/UL; BASOPHILS % (AUTO) 0.1 % (0-1); EOSINOPHILS # (AUTO) 0.01 10*3/UL; EOSINOPHILS % (AUTO) 0.1 % (0-8); Hematocrit [HCT] 37.8 % (37.0-47.0); Hemoglobin [HGB] 12.6 g/dL (12.0-16.0); LYMPHOCYTES # (AUTO) 2.12 10*3/uL; MEAN CORPUSCULAR HEMOGLOBIN 35.9 PG (27-31); MEAN CORPUSCULAR HGB CONC 33.3 g/dL (33-37); MEAN CORPUSCULAR VOLUME 107.7 FL (81-99); MEAN PLATELET VOLUME 10.1 FL (7.4-12.2); MONOCYTES % (AUTO) 9.5 % (5-15); NEUTROPHILS % (AUTO) 67.7 % (50-80); RED BLOOD COUNT 3.51 10^6/uL (4.20-5.40)
[2018-05-11 05:26] LABS: BLOOD UREA NITROGEN 15 mg/dL (7-22); BUN/CREATININE RATIO 16.66 (6-20); LIPASE 133 IU/L (23-300); SERUM ALBUMIN 3.8 g/dL (3.5-4.8)
[2018-05-11 05:28] LABS: PLATELET MORPHOLOGY COMMENT NORMAL MORPHOLOGY (NORM); RBC MORPHOLOGY COMMENT NORMAL MORPHOLOGY (NORM); WBC MORPHOLOGY COMMENT NORMAL MORPHOLOGY (NORM)
[2018-05-11] MEDS: HYDROmorphone 2 MG/1 ML IVP PRN ×2 (05:43→19:38)
[2018-05-11] MEDS: IPRATROPIUM/ALBUTEROL SULFATE 3 ML NEB NEB PRN ×2 (06:27→18:28)
[2018-05-11] MEDS: BUDESONIDE 0.25 MG/2 ML AMPUL.NEB NEB SCH ×2 (06:27→18:28)
[2018-05-11] MEDS ORDERED: FUROSEMIDE 10 MG/1 ML - 4 ML IVP SCH (07:00)
[2018-05-11] MEDS ORDERED: METOPROLOL SUCCINATE 25 MG SR 24H TABLET PO SCH (09:00)
--- NOTE | 2018-05-11 09:22 | DI ---
US Abdomen Limited,05/11/2018 7:00 AM: Clinical History: Abdominal pain Previous Exam: July 30, 2012 Findings: Multiple grayscale and color Doppler sonographic images are obtained through the abdomen. The pancrea s is within normal limits. The liver is also normal. The gallbladder is normal without stones nor hyd ronephrosis. The gallbladder wall measures 2 mm. Negative sonographic Garrison's sign was obtained. The common bile duct measures 4 mm. Right kidney measures 11.5 cm in length without hydronephrosis nor nephrolithiasis. Visualized portions of the aorta are unremarkable. Impression: No acute intra-abdominal pathology.
[2018-05-11] MEDS: GABAPENTIN 400 MG CAPSULE PO SCH ×3 (10:05→20:05)
[2018-05-11] MEDS: CARVEDILOL 6.25 MG TABLET PO SCH ×2 (10:05→20:04)
[2018-05-11] MEDS: PANTOPRAZOLE IV 40 MG VIAL IVP SCH (10:05)
[2018-05-11] MEDS: Spironolactone Tab 25 MG TAB PO SCH (10:05)
[2018-05-11] MEDS: CHOLECALCIFEROL 1000 IU TABLET PO SCH (10:05)
[2018-05-11] MEDS: FLUoxetine 20 MG CAPSULE PO SCH (10:05)
[2018-05-11] MEDS: RAMIPRIL 10 MG CAPSULE PO SCH (10:05)
--- NOTE | 2018-05-11 10:15 | PDOC(PROG) ---
Date of Service: 05/11/18 Time of Service: 09:45 Interval History: Subjective Continue to complain from pain sharp pain she said in the mid chest. No vomiting today. Objective : Data - Labs CBC and BMP: 05/11/18 03:55 05/11/18 03:55 Objective : Exam - General General Appearance: No Acute Distress, Cooperative - Head Head Exam: Normal Inspection - Eye Eye Exam: Normal Appearance - ENT ENT Exam: Normal Exam - Neck Neck Exam: Normal Inspection - Respiratory Respiratory Exam: Clear to Auscultation - Bilaterally - Cardiovascular Cardiovascular Exam: RRR - GI/Abdominal GI/Abdominal Exam: Normal Bowel Sounds, Non Distended, Soft, No Organomegaly Additional GI/Abdominal Exam Details: Abdomen is soft there is some tenderness in the epigastrium - Rectal Rectal Exam: Deferred - External Exam: Deferred Exam: Deferred - Extremities Extremities Exam: Normal Inspection - Back Back Exam: Normal Inspection - Neurological Neurological Exam: Alert, Oriented x 3, CN II-XII Intact, No Facial Droop, Speech Intact / Clear, Moves All Extremities Equally - Psychiatric Psychiatric Exam: Flat Affect - Integumentary Integumentary Exam: Normal Color Assessment and Plan - Patient Problems (1) Atypical chest pain Current Visit: Yes Status: Acute Comment: Troponin repeated remain negative. Maybe esophagitis from alcohol. Code(s): R07.89 - Other chest pain (2) Pancreatitis Current Visit: Yes Status: Acute Comment: Lipase normalized we did do an ultrasound of her gallbladder waiting for the result. I think will advance the diet later on today. There is no vomiting today. We'll cut back on the IV pain medication and oral pain medications Code(s): K85.90 - Acute pancreatitis without necrosis or infection, unspecified (3) Alcohol abuse Current Visit: No Status: Acute Comment: She is on CIWA's scale as needed Code(s): F10.10 - Alcohol abuse, uncomplicated (4) Chronic obstructive lung disease Current Visit: No Status: Chronic Comment: Continue breathing treatments Qualifiers: COPD type: chronic bronchitis Chronic bronchitis type: unspecified Qualified Code(s): J42 - Unspecified chronic bronchitis (5) Gastroesophageal reflux disease Current Visit: No Status: Chronic Comment: Continue Protonix (6) Elevated brain natriuretic peptide (BNP) level Current Visit: No Status: Acute Comment: Continue Lasix Code(s): R79.89 - Other specified abnormal findings of blood chemistry (7) Diabetes mellitus, type 2 Current Visit: No Status: Chronic Comment: Blood sugar is acceptable. Qualifiers: Diabetes mellitus middle or intermediate school principal insulin use: with [facility] use Diabetes mellitus complication status: without complication Qualified Code(s): E11.9 - Type 2 diabetes mellitus without complications; Z79.4 - long-term (current) use of insulin (8) Diabetic neuropathy Current Visit: No Status: Chronic Comment: Continue Neurontin Qualifiers: Diabetes mellitus type: type 2 Diabetes mellitus complication detail: diabetic polyneuropathy Qualified Code(s): E11.42 - Type 2 diabetes mellitus with diabetic polyneuropathy
[2018-05-11] MEDS: oxyCODONE/APAP 7.5/325 Tab 1 TAB TAB PO PRN ×2 (12:28→18:02)
[2018-05-11] MEDS ORDERED: NICOTINE 21 MG /DAY PATCH TRANSDERM SCH (19:45)
[2018-05-11] MEDS ORDERED: Simvastatin Tab 40 MG TAB PO SCH (21:00)
[2018-05-12] MEDS: oxyCODONE/APAP 7.5/325 Tab 1 TAB TAB PO PRN ×2 (00:39→09:56)
[2018-05-12] MEDS: HYDROmorphone 2 MG/1 ML IVP PRN (03:24)
[2018-05-12] MEDS: BUDESONIDE 0.25 MG/2 ML AMPUL.NEB NEB SCH (06:23)
[2018-05-12] MEDS: IPRATROPIUM/ALBUTEROL SULFATE 3 ML NEB NEB PRN (06:24)
[2018-05-12 06:28] VITALS: RESP 20
[2018-05-12] MEDS ORDERED: FUROSEMIDE 40 MG TABLET PO SCH (07:00)
[2018-05-12] MEDS: CARVEDILOL 6.25 MG TABLET PO SCH (09:56)
[2018-05-12] MEDS: FLUoxetine 20 MG CAPSULE PO SCH (09:56)
[2018-05-12] MEDS: RAMIPRIL 10 MG CAPSULE PO SCH (09:56)
[2018-05-12] MEDS: CHOLECALCIFEROL 1000 IU TABLET PO SCH (09:56)
[2018-05-12] MEDS: Spironolactone Tab 25 MG TAB PO SCH (09:56)
[2018-05-12] MEDS: GABAPENTIN 400 MG CAPSULE PO SCH (09:56)
[2018-05-12] MEDS: PANTOPRAZOLE IV 40 MG VIAL IVP SCH (09:56)
[2018-05-12 10:55] VITALS: O2SAT 96
--- NOTE | 2018-05-12 11:35 | DCSUMMARY ---
Hospitalization Summary Admit Date: 05/10/2018 Discharge Date: 05/12/18 Hospital Course: Discharge diagnoses 1. Possible mild pancreatitis 2. Possible esophagitis and gastritis 3. History of alcohol abuse 4. History of diabetes 5. History of hypertension 6. History of diabetic neuropathy 7. History of depression 8. History of bipolar disorder 9. History of obstructive sleep apnea 10. Mild/minimal coronary artery disease based on an angiogram December 2017 with only 20% diffuse stenosis in the mid left anterior descending artery 11. History of pneumonia December 2017 Hospital course This is a 52 years old female with medical history significant for history of hypertension, diabetes, diabetic gastroparesis, neuropathy, depression, hypercholesterolemia, COPD, history of alcohol abuse, cardiac catheter in December 2017 showed mild/no prior artery disease with 20% diffuse stenosis in the mid left anterior descending artery, who presented to the hospital history pain in the epigastric area and also the lower chest. Pain was severe, there was no shortness of breath. The pain did go to the back. Her blood pressure was elevated at 167/123, she had multiple pain medication evaluation revealed mildly elevated lipase and she was admitted. A CT of the abdomen and chest did not show significant finding. She continued to complain when she came into the floor for epigastric pain and also lower chest pain. She did say that she drinks fifth a day and last time she had a drink was 4 days before she came into the hospital she did say that she vomited the morning she came in. After admission to the hospital we gave some fluids initially put on clear liquid did an ultrasound the next day which was negative. Her lipase did normalize quickly the next day. She tolerated diet. We kept her overnight. Her blood pressure was elevated when she was admitted so changed her medication from metoprolol to Coreg and that seemed to give better control her cough blood pressure. Though she had an elevation of her BNP I think this is secondary to her underlying COPD and potential diastolic dysfunction but clinically her lungs show no evidence of crackles. On the day of discharge she was feeling better exam just minimal tenderness in the left upper quadrant. Chest pain seemed to be revolved. Her troponin remained negative the chest pain did not look anginal. Her symptoms probably due to mild pancreatitis and esophagitis/gastritis from alcohol. Did emphasize that she need to make lifestyle changes. We discharge her on Protonix twice a day for a week then daily after that. Did give her a few pain pills and did emphasize to her and she knew that if she started drinking again which she claims she will not this may leads to respiratory depression and . Discharge instruction Diet low-fat Activity as started Medications Current Medication(s) Medication Instructions Recorded Confirmed Type Blood-Glucose Meter [Onetouch 1 ea MC BID #1 box 11/05/15 05/10/18 Rx Ultramini] albuterol sulfate HFA 90 1 puff INH 6XD PRN #8 g 03/27/18 05/10/18 Rx mcg/actuation aerosol inhaler blood sugar diagnostic strips 1 strip MISCELLANEOUS BID strip 04/11/18 05/10/18 History nicotine 21 mg/24 hr daily 1 patch TRANSDERM Q24H #28 ea 04/11/18 05/10/18 Rx transdermal patch cholecalciferol (vitamin D3) 2,000 2,000 unit PO QDAY #30 cap 04/13/18 05/10/18 Rx unit capsule multivitamin capsule 1 cap PO QDAY #30 cap 04/13/18 05/10/18 Rx budesonide 0.25 mg/2 mL suspension 0.25 mg INH BID #120 ml 04/26/18 05/10/18 Rx for nebulization chlordiazepoxide 5 mg capsule 5 mg PO Q8H PRN #60 cap 04/26/18 05/10/18 Rx ipratropium-albuterol 0.5 mg-3 3 ml INH Q6-8H PRN #90 ml 04/26/18 05/10/18 Rx mg(2.5 mg base)/3 mL nebulization soln fluoxetine 60 mg tablet 60 mg PO QDAY #90 tab 05/01/18 05/10/18 Rx furosemide 20 mg tablet 40 mg PO QDAY #180 tab 05/01/18 05/10/18 Rx gabapentin 600 mg tablet 1,200 mg PO TID #180 tab 05/01/18 05/10/18 Rx ondansetron 4 mg disintegrating 4 mg PO Q4H PRN #30 tab 05/01/18 05/10/18 Rx tablet ramipril 10 mg capsule 20 mg PO QDAY #180 cap 05/01/18 05/10/18 Rx simvastatin 40 mg tablet 40 mg PO QDAY #90 tab-cap 05/01/18 05/10/18 Rx sitagliptin 100 mg tablet 100 mg PO QDAY #90 tab-cap 05/01/18 05/10/18 Rx spironolactone 25 mg tablet 25 mg PO QDAY #90 tab 05/01/18 05/10/18 Rx Carvedilol [Coreg] 6.25 mg PO BID #60 tab 05/12/18 Rx Pantoprazole Sodium [Protonix] 40 mg PO BID #40 tablet 05/12/18 Rx oxyCODONE/APAP 7.5/325 Tab 1 tab PO Q6H PRN #10 tab 05/12/18 Rx [Percocet 7.5/325 Tab] Follow-up with PCP 1-2 weeks condition at discharge was stable for discharge Exam - Vitals Vital Signs: Vital Signs Temperature 97 F Temperature Source Temporal Artery Scan Pulse Rate [Pulse Oximeter] 87 Pulse Rate 66 Respiratory Rate 20 Blood Pressure [Left Arm] 128/93 Blood Pressure 151/110 Pulse Ox 96 Oxygen Flow Rate 1.5 Oxygen Delivery Method Nasal Cannula Height 5 ft 2 in Weight 189 lb 3.2 oz - General General Appearance: No Acute Distress, Cooperative - Eye Eye Exam: POSITIVE: Normal Appearance - ENT ENT Exam: POSITIVE: Normal Exam - Neck Neck Exam: Normal Inspection - Respiratory Additional Respiratory Exam Details: Decreased air entry otherwise clear - Cardiovascular Cardiovascular Exam: POSITIVE: RRR - GI/Abdominal GI/Abdominal Exam: POSITIVE: Normal Bowel Sounds, Non Tender, Non Distended, Soft, No Organomegaly - Rectal Rectal Exam: POSITIVE: Deferred - External Exam: POSITIVE: Deferred - Extremities Extremities Exam: POSITIVE: Normal Inspection - Back Back Exam: POSITIVE: Normal Inspection - Neurological Neurological Exam: POSITIVE: Alert, Oriented x 3, CN II-XII Intact, No Facial Droop, Speech Intact / Clear - Psychiatric Psychiatric Exam: POSITIVE: Normal Affect Patient Problems - Patient Problem List (1) Atypical chest pain Current Visit: Yes Status: Acute Code(s): R07.89 - Other chest pain Ca tegory: Medical (2) Pancreatitis Current Visit: Yes Status: Acute Code(s): K85.90 - Acute pancreatitis without necrosis or infection, unspecified Category: Medical (3) Alcohol abuse Current Visit: No Status: Acute Code(s): F10.10 - Alcohol abuse, uncomplicated Category: Medical (4) Chronic obstructive lung disease Current Visit: No Status: Chronic Qualifiers: COPD type: chronic bronchitis Chronic bronchitis type: unspecified Qualified Code(s): J42 - Unspecified chronic bronchitis Category: Medical (5) Gastroesophageal reflux disease Current Visit: No Status: Chronic Category: Medical (6) Elevated brain natriuretic peptide (BNP) level Current Visit: No Status: Acute Code(s): R79.89 - Other specified abnormal findings of blood chemistry Category: Medical (7) Diabetes mellitus, type 2 Current Visit: No Status: Chronic Qualifiers: Diabetes mellitus manager long term care insulin use: with manager long term care use Diabetes mellitus complication status: without complication Qualified Code(s): E11.9 - Type 2 diabetes mellitus without complications; Z79.4 - terminal system operator (current) use of insulin Category: Medical (8) Diabetic neuropathy Current Visit: No Status: Chronic Qualifiers: Diabetes mellitus type: type 2 Diabetes mellitus complication detail: diabetic polyneuropathy Qualified Code(s): E11.42 - Type 2 diabetes mellitus with diabetic polyneuropathy Category: Medical
[2018-05-12 12:00] VITALS: BP 143/92; TEMP 97.5
== END 2018-05-12 13:08 | disposition home or self-care (01) | DRG 439 ==
LOC: ER 15:29 → MED/SURG 19:05
PROVIDERS: ADMIT Internal Medicine; ATTEND Internal Medicine